=== PATIENT | male | born 1960 | race Caucasian/White ===

== ENCOUNTER 2019-06-08 10:27 | Outpatient (CLI) | payer BC, SELFPAY ==
--- NOTE | ~2019-06-08 | MR_ITS ---
. EXAMINATION: MR brain/brain stem wo/w con DATE: 06/08/2019 13:23 INDICATION: Movement disorder. TECHNIQUE: Magnetic resonance imaging (MRI) of the brain and brainstem was performed without and with 20 mL MultiHance intravenous contrast. Sequences included sagittal and axial T1-weighted FSE, axial diffusion-weighted FS EPI, axial T2*-weighted GRE, axial T2-weighted FLAIR Propeller, axial T2-weight ed Propeller, small ashvp-cj-nvui coronal FIESTA, small bpthe-xz-cedc coronal T1-weighted FSE, and sm all ofsfn-np-cjdf axial T1-weighted SPGR. Postcontrast sequences included axial T1-weighted FSE, smal l eprlg-zv-blzz coronal T1-weighted FSE, and small hnktr-jh-okbb axial T1-weighted SPGR. Apparent dif fusion coefficient (ADC) maps were created. COMPARISON: Brain MRI 10/10/2018 FINDINGS: There are scattered areas of nonspecific increased T2-weighted signal intensity in the cere bral white matter, which is within normal limits for the patient's age. There is an 8 x 5 x 5 mm mass to the left of the josé at the left trigeminal nerve root entry zone that demonstrates increased T1- weighted signal intensity. There is no intracranial hemorrhage or acute ischemic infarct. The ventric les are normal in size. The paranasal sinuses are clear. The orbits are normal. The mastoid air cells are normal. IMPRESSION: 1. 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 Reviewed, dictated and finalized at location A. 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
--- NOTE | 2019-06-08 11:20 | NEURO_ITS ---
TEST: ELECTROENCEPHALOGRAM DIAGNOSIS: MOVEMENT DISORDER PATIENT NUMBER: [id number] EEG NUMBER: [id number] RECORDING DATE: 06/08/19 CLINICAL HISTORY: Patient reports he has tremors in his hands. CONDITION OF RECORDING: Awake, drowsy and sleep EEG DESCRIPTION: Basic resting occipital frequency consists of minimal amount of poorly organized low voltage 9-11hz alpha mixed with minimal amount of low voltage 15-18hz beta. During drowsiness low voltage beta activity is seen diffusely mixed with waxing and waning posterior alpha rhythms. Bilateral symmetrical sleep activity is seen during sleep. Photic stimulation produced poor drive. Nonparoxysmal. Nonfocal. Nonlateralizing. IMPRESSION: No significant abnormalities noted. Patient had an EEG done on 10/10/18 which was also without any abnormalities. [facility]
[2019-06-08 12:39] LABS: Blood Urea Nitrogen 16 mg/dL (8-26); Estimated Glomerular Filt Rate > 60
== END 2019-06-08 10:28 | disposition home or self-care (01) ==
LOC: ANHNEURO 10:30
PROVIDERS: Visit Provider Psychiatry & Neurology Neurology
DX: G25.9 Extrapyramidal and movement disorder, unspecified (principal)
CPT/HCPCS: 70553; 95816; A9577

== ENCOUNTER 2020-10-31 16:08 | Inpatient (IN) | payer BC, SELFPAY ==
[2020-10-31] VITALS (19 sets, daily range): BP systolic 97–140; BP diastolic 45–65; PULSE 64–69; RESP 12–23; TEMP 36.6–36.7; O2SAT 91–100; BMI 33.8
--- NOTE | ~2020-10-31 | CT_ITS ---
EXAMINATION: CTA chest PE protocol EXAM DATE: 10/31/2020 17:54 INDICATION: Shortness of breath. TECHNIQUE: Spiral CTA of the chest (pulmonary arteries) was performed with 100 cc Omnipaque 350 intr avenous contrast injection. Images were acquired during the pulmonary arterial phase. Coronal maxi mum intensity projection 3D-reconstructions were created by the technologist on dedicated workstation . Axial, coronal and sagittal reformatted images were reviewed. The dose-length product (DLP) for t his examination was 705.67 mGy-cm. The exposure was tailored according to patient size (auto mA exp osure control), and iterative reconstruction (ASIR) was used as additional dose reduction technique. There is no prior study for comparison. FINDINGS: Pulmonary arteries are well opacified and without intraluminal filling defects. No thora cic aortic dissection. There is moderate-sized right pleural effusion probably nonloculated, and a tr laureano left pleural effusion. There is segmental right basilar compressive atelectasis. No evidence of p neumonia. Tracheobronchial tree is patent. There is no mediastinal, hilar or axillary lymphadenopat hy. There is no pneumothorax. Mild cardiomegaly. There are sternotomy wires, and cardiac/coronar y surgical changes. Correlate with prior history. Moderate splenomegaly, spleen measuring up 17.7 cm in AP dimension. There is thoracic spondylosis without osteoblastic or osteolytic lesions identifie d. IMPRESSION: 1. No pulmonary emboli. 2. Cardiomegaly, moderate right pleural effusion with adjacent segmental atelectasis. 3. Moderate splenomegaly. Reviewed, dictated and finalized at location A. IMPRESSION: 1. No pulmonary emboli. 2. Cardiomegaly, moderate right pleural effusion with adjacent segmental atele ctasis. 3. Moderate splenomegaly.
--- NOTE | ~2020-10-31 | US_ITS ---
EXAMINATION: US thoracentesis DATE: 11/01/2020 15:12 INDICATION: pleural effusion TECHNIQUE: The procedure and its risks, benefits, and alternatives were discussed with the patient. P otential risks discussed included bleeding, infection, and pneumothorax. The patient understood the r isks and agreed to proceed. The skin was prepped and draped in sterile fashion. 1% lidocaine was used for local anesthesia. Under ultrasound guidance, a 5 Fr catheter with trochar was advanced into the right pleural effusion. Fluid was aspirated. The catheter was removed, and a dressing was applied. Th ere were no immediate complications. FINDINGS: Ultrasound images demonstrate a right pleural effusion and the catheter within the fluid. IMPRESSION: 1. Successful ultrasound-guided thoracentesis yielding 1000 mL of clear, yellow fluid. Reviewed, dictated and finalized at location A. IMPRESSION: 1. Successful ultrasound-guided thoracentesis yielding 1000 mL of clear, yello w fluid.
--- NOTE | ~2020-10-31 | XR_ITS ---
EXAMINATION: XR chest 2V EXAM DATE: 10/31/2020 16:55 INDICATION: Shortness of breath. History CHF. TECHNIQUE: Frontal and lateral projections of the chest obtained and reviewed. There is no prior paddy dy for comparison. FINDINGS: Sternotomy wires are present without findings to suggest sternal dehiscence. There is card iomegaly. Small to moderate right, small pleural effusions. Possible mild pulmonary edema. No conflue nt consolidation or pneumothorax. Patient has diffuse idiopathic skeletal hyperostosis (DISH). IMPRESSION: 1. Cardiomegaly, small to moderate right, small pleural effusions. 2. Possible mild pulmonary edema. Reviewed, dictated and finalized at location A.
--- NOTE | ~2020-10-31 | XR_ITS ---
EXAMINATION: [id number] DATE: 11/01/2020 15:21 INDICATION: Right pleural effusion status post thoracentesis. TECHNIQUE: A single frontal view of the chest was obtained on 2 radiographs. COMPARISON: Chest 2 views 10/31/2020, chest CT 10/31/2020 FINDINGS: There are small bilateral pleural effusions. No pneumonia or pneumothorax. Cardiomegaly is noted. Median sternotomy wires and mediastinal surgical clips are seen, likely from prior coronary ar bernadine bypass grafting. IMPRESSION: 1. Small pleural effusions with improvement on the right status post thoracentesis. 2. Cardiomegaly. Reviewed, dictated and finalized at location A. IMPRESSION: 1. Small pleural effusions with improvement on the right status post thoracente sis. 2. Cardiomegaly.
--- NOTE | ~2020-10-31 | XR_ITS ---
EXAMINATION: XR chest 1V portable INDICATION: Pleural effusion TECHNIQUE: Portable AP chest at 0759 hours COMPARISON: 11/01/2020 FINDINGS: There are small pleural effusions. Minimal airspace opacities are present in the lung bases . Cardiomegaly is noted. There is no pneumothorax. Median sternotomy wires and mediastinal surgical c lips are seen, likely from prior coronary artery bypass grafting. IMPRESSION: 1. Small pleural effusions. 2. Cardiomegaly. 3. Minimal bibasilar airspace opacities, likely atelectasis. Reviewed, dictated and finalized at location D.
--- NOTE | 2020-10-31 16:28 | ECG_ITS ---
Measurements Intervals [place] Rate: 68 P: 75 NH: 136 QRS: -14 QRSD: 105 T: 189 QT: 465 QTc: 496 Interpretive Statements SINUS RHYTHM INCOMPLETE RIGHT BUNDLE BRANCH BLOCK LOW QRS VOLTAGE IN PRECORDIAL LEADS INFERIOR INFARCT, AGE INDETERMINATE ST-T WAVE ABNORMALITY IN ANTEROLAT/HIGH LAT LEADS- CONSIDER ISCHEMIA BASELINE ARTIFACT- II, III, AVR, AVF, V1-V6 ABNORMAL ECG Electronically Signed On 10-31-2020 16:36:02 CDT by Tyrese Reno D.O.
[2020-10-31 16:46] LABS: Basophils Absolute Auto 0.1 K/mm3 (0.0-0.1); Basophils Percent Auto 0.7 % (0.2-1.2); Eosinophils Absolute Auto 0.4 K/mm3 (0-0.3); Eosinophils Percent Auto 3.9 % (0-4.4); Hematocrit 25.9 % (42.0-52.0); Immature Granulocyte Absolute 0.05 K/mm3 (0.00-0.031); Immature Granulocyte Percent A 0.6 % (0-0.5); Lymphocytes Percent Auto 12.2 % (18.3-44.2); Mean Corpuscular HGB Conc 30.9 g/dl (32-36); Mean Corpuscular Hemoglobin 24.9 pg (26-34); Mean Corpuscular Volume 80.7 fl (80-100); Mean Platelet Volume 9.1 fl (7.4-10.4); Monocytes Absolute Auto 0.9 K/mm3 (0.1-0.6); Monocytes Percent Auto 9.5 % (2.6-8.5); Neutrophils Absolute Auto 6.6 K/mm3 (1.3-6.7); Neutrophils Percent Auto 73.1 % (45.5-73.1); Platelet Count Result 241 k/mm3 (150-375); Red Blood Count 3.21 M/mm3 (4.6-6.20); Red Cell Distribution Width 21.8 % (11.5-14.5)
[2020-10-31 17:00] LABS: Anion Gap 6 mmol/L (8-16); Blood Urea Nitrogen 7 mg/dL (9-20); Calcium 7.8 mg/dL (8.4-10.2); Carbon Dioxide 39 mmol/L (22-30); Chloride 88 mmol/L (98-107); Estimated CRCL calculation 124 ml/min; Estimated Glomerular Filt Rate > 60; Glucose 104 mg/dL (75-110); Potassium 2.4 mmol/L (3.4-5.0); Sodium 133 mmol/L (137-145)
--- NOTE | 2020-10-31 17:05 | ED.GENADULT ---
HPI - General Adult General Chief complaint: Shortness of Breath/Dyspnea Stated complaint: Pulse ox 82% at [facility] , congestion , may need blood Time Seen by Provider: 10/31/20 16:32 Source: patient History of Present Illness HPI narrative: Patient is a 60 y/o male complaining of moderate weakness and SOB for 2 months ago. He states that exertion makes his symptoms worse. He has some cough, but fever or chest pain. He was seen in Dr. De La Vega's office today and sent here because his pulse was 84% on RA. Related Data Allergies Allergy/AdvReac Type Severity Reaction Status Date / Time penicillin G Allergy Unknown Verified 10/10/20 09:01 Review of Systems Constitutional: Constitutional: Denies chills, Denies fever(s), Denies headache(s) and Reports weakness Eyes: Eyes: Denies blurry vision ENT: Denies headache(s) and Denies neck pain Cardiovascular: Cardiovascular: Denies chest pain and Reports dyspnea Respiratory: Respiratory: Reports cough and Reports dyspnea Gastrointestinal: Gastrointestinal: Denies abdominal pain, Denies diarrhea, Denies nausea and Denies vomiting Genitourinary: Genitourinary: Denies hematuria and Denies dysuria Musculoskeletal: Musculoskeletal: Denies back pain and Denies neck pain Neurologic: Denies headache(s) and Denies weakness Exam Const: General: no acute distress and well developed Orientation/consciousness: oriented to person, oriented to place and confusion HENMT: Head: normocephalic Ears: external ears normal General nose exam: Normal external nose present Eyes: General: appearance normal, both eyes and all related structures Conjunctivae: conjunctivae normal Neck: Neck: normal visual inspection and full ROM Chest: Chest palpation & inspection: normal inspection of the chest and no tenderness Resp: Effort & Inspection: normal respiratory effort Auscultation: clear to auscultation bilaterally Cardio: Rate: regular rate Rhythm: regular rhythm GI: GI Palp: No abdominal tenderness and Yes Soft to palpation Skin: General skin exam: normal color and turgor normal Neuro: General: oriented to person, oriented to place and confusion Cognition (Neuro): normal cognition Extrem: General: normal to inspection, full ROM and no pedal edema Psych: Appearance: grossly normal Mental Status: mental status grossly normal Affect: normal affect Course Consultations Consultation #1: Discussed with JOSE Green, who agrees to admit. Date: 10/31/20 Time: 18:45 Vital Signs Vital signs: Vital Signs Temperature 36.7 C 10/31/20 16:21 Pulse Rate 69 10/31/20 16:21 Respiratory Rate 20 10/31/20 16:21 Blood Pressure 103/50 L 10/31/20 16:21 Pulse Oximetry 91 10/31/20 16:21 Temperature 36.7 C 10/31/20 16:21 Pulse Rate 66 10/31/20 19:20 Respiratory Rate 16 10/31/20 19:20 Blood Pressure 103/53 L 10/31/20 19:20 Pulse Oximetry 99 10/31/20 19:20 Medical Decision Making Vital Signs Vital Signs: Vital Signs Temperature 36.7 C 10/31/20 16:21 Pulse Rate 69 10/31/20 16:21 Respiratory Rate 20 10/31/20 16:21 Blood Pressure 103/50 L 10/31/20 16:21 Pulse Oximetry 91 10/31/20 16:21 Temperature 36.7 C 10/31/20 16:21 Pulse Rate 66 10/31/20 19:20 Respiratory Rate 16 10/31/20 19:20 Blood Pressure 103/53 L 10/31/20 19:20 Pulse Oximetry 99 10/31/20 19:20 Lab Data Result diagrams: 10/31/20 16:40 10/31/20 16:40 Labs: Lab Results 10/31/20 10/31/20 10/31/20 Range/Units 16:40 16:40 17:09 WBC 9.0 (4.5-10.0) K/mm3 RBC 3.21 L (4.6-6.20) M/mm3 Hgb 8.0 L (14.0-18.0) g/dL Hct 25.9 L (42.0-52.0) % MCV 80.7 (80-100) fl MCH 24.9 L (26-34) pg MCHC 30.9 L (32-36) g/dl RDW 21.8 H (11.5-14.5) % Plt Count 241 (150-375) k/mm3 MPV 9.1 (7.4-10.4) fl Immature Gran % (Auto) 0.6 H (0-0.5) % Neut % (Auto) 73.1 (45.5-73.1) % Lymph % (Auto) 12.2 L (18.3-44.2)
[2020-10-31] MEDS: POTASSIUM CHLORIDE 20 MEQ TABLET 40 MEQ PO (17:19)
[2020-10-31 17:25] LABS: INR 1.3; Prothrombin Time 16.5 Seconds (11.1-14.7)
[2020-10-31 17:26] LABS: Partial Thromboplastin Time 39.5 SECONDS (22.3-36.8)
[2020-10-31 17:28] LABS: Alanine Aminotransferase 10 U/L (4-50); Alkaline Phosphatase 106 U/L (38-126); Aspartate Amino Transferase 37 U/L (17-59); Bilirubin,Total 2.4 mg/dL (0.2-1.3); D Dimer 1.68 ug/mL (<0.48)
[2020-10-31 17:30] LABS: Base Excess ABG 15.2 mEq/l (+/-2.0); Fractional Inspired Oxygen 24 %; HCO3 ABG 39.2 mEq/l (22.0-26.0); Oxygen Content ABG 11.3 %vol (16.0-22.0); Oxygen Saturation ABG 92.8 % (95.0-100.0); Oxyhemoglobin 89.8 % THb (90.0-100.0); PCO2 ABG 46.4 mmHg (35.0-45.0); PO2 ABG 57.9 mmHg (80.0-100.0); PO2 FiO2 Ratio Arterial Blood 2.41 %; Total Hemoglobin 8.9 g/dL (12.0-18.0)
[2020-10-31 17:31] LABS: Device NASAL CANNULA; Modified Allen's Test Pass; Site Drawn RIGHT RADIAL; pH ABG 7.545 (7.350-7.450)
--- NOTE | 2020-10-31 17:39 | PC.NURSE ---
Patient to CT.
[2020-10-31 17:41] LABS: NT Pro B Type Natriuretic Pept 1250 pg/mL (5-100); Troponin I < 0.012 ng/mL (0.000-0.034)
[2020-10-31 20:19] LABS: Troponin I < 0.012 ng/mL (0.000-0.034)
--- NOTE | 2020-10-31 20:36 | ADMGEN ---
This patient, Faisal Suazo, was admitted to [facility] Surg Room 315-01. Patient/family oriented to hospital policies and general routines including ID bracelet, bed and alarms, visiting hours, pain management, procedures, bathroom and other care routines, personal items, smoking policy, room service/diet, and visiting hours. Information on how to activate the Rapid Response Team has been discussed. Patient/Family are encouraged to report perceived risks to care and to ask questions if they do not understand what they are told or what they should do.
[2020-10-31 23:41] LABS: Troponin I < 0.012 ng/mL (0.000-0.034)
[2020-11-01] VITALS (12 sets, daily range): BP systolic 95–109; BP diastolic 39–59; PULSE 64–78; RESP 17–22; TEMP 36.6–36.8; O2SAT 90–99
--- NOTE | 2020-11-01 01:39 | PM.IMHP ---
H&P: HPI History of Present Illness Date/Time: 11/01/20 01:39 Chief Complaint: shortness of breath Narrative: This is a 60-year-old male WITH PAST MEDICAL HISTORY SIGNIFICANT FOR HYPERTENSION ,DYSLIPIDEMIA, MOVEMENT DISORDER, CORONARY ARTERY DISEASE. PATIENT COMES IN DUE TO SHORTNESS OF BREATH HE IS A POOR HISTORY DOES NOT GIVE MUCH HISTORY ON HIS ON WHICH I HAVE OBTAINED MAINLY ON REVIEW OF MEDICAL RECORDS AND EMERGENCY ROOM RECORDS. HE WAS AT HIS PRIMARY CARE PHYSICIAN'S OFFICE WHERE HE WENT DUE TO SHORTNESS OF BREATH AND HE WAS FOUND TO HAVE AN OXYGEN SATURATION IN THE LOW 80S AND WAS SENT OVER TO EMERGENCY ROOM. PRELIMINARY WORKUP IS SIGNIFICANT FOR A CT OF THE CHEST WITH MODERATE RIGHT-SIDED PLEURAL EFFUSION, CHEMISTRY WAS SIGNIFICANT FOR POTASSIUM OF 2.4 A BNP OF 1250 ABG WITH PO2 57. AT THE TIME OF MY VISIT PATIENT DENIED ANY DISCOMFORT. Review of Systems Review of Systems: Narrative: SHORTNESS OF BREATH SENT OVER BY PRIMARY CARE PHYSICIAN DUE TO LOW PULSE OX Constitutional: Constitutional: Denies chills, Reports fatigue, Denies fever(s), Denies malaise and Denies weakness Eyes: Eyes: Denies change in vision ENT: Denies nasal congestion, Denies nasal discharge and Denies nasal obstruction Cardiovascular: Cardiovascular: Denies irregular heart rhythm, Reports leg edema, Denies lightheadedness, Denies radiating jaw, neck or arm pain, Denies palpitations and Reports dyspnea Respiratory: Respiratory: Denies cough and Reports dyspnea Gastrointestinal: Gastrointestinal: Denies diarrhea, Denies nausea and Denies vomiting Genitourinary: Genitourinary: Reports no additional male genitourinary complaints Musculoskeletal: Musculoskeletal: Reports no additional musculoskeletal complaints Integumentary/Breasts: Skin/Breast: Reports system reviewed and no additional complaints, except as docu Neurologic: Reports system reviewed and no additional complaints, except as documented Psychiatric: Psychiatric: Reports no additional psychiatric complaints Endocrine: Endocrine: Reports no additional endocrine complaints Hematologic/Lymphatic: Hematologic/Lymphatic: Reports no additional hematologic/lymphatic complaints Allergic/Immunologic: Allergic/Immunologic: Reports no additional allergic/immunologic complaints [facility] Family History Family History (Updated 10/31/20 @ 23:10 by Aicha Mendoza RN) Father Congestive heart failure Social History Social History Smoking packs per day: 0.5 Smoking cigarettes per day: 10.0 Smoking status: Current every day smoker Tobacco type: cigarettes Alcohol intake: never Substance use: never Gender identity (if verbalized by the patient): Male Spiritual care concerns: No Meds Home Medications and Allergies Home Medications Medication Instructions Recorded Confirmed Type albuterol sulfate [ProAir HFA] 2 inh INHALATION BID 10/31/20 10/31/20 History alprazolam [Xanax] 1 mg PO BID 10/31/20 10/31/20 History atorvastatin [Lipitor] 1 mg PO DAILY 10/31/20 10/31/20 History bumetanide 1 mg PO BID 10/31/20 10/31/20 History clopidogrel [Plavix] 75 mg PO DAILY 10/31/20 10/31/20 History furosemide [Lasix] 40 mg PO BID 10/31/20 10/31/20 History metoprolol tartrate 50 mg PO DAILY 10/31/20 10/31/20 History omeprazole [Prilosec] 1 mg PO DAILY 10/31/20 10/31/20 History primidone [Mysoline] 50 mg PO QHS 10/31/20 10/31/20 History sertraline [Zoloft] 100 mg PO DAILY 10/31/20 10/31/20 History Allergies Allergy/AdvReac Type Severity Reaction Status Date / Time penicillin G Allergy Unknown Verified 10/10/20 09:01 Vital Signs Vital Signs - 24 hr 10/31/20 16:21 10/31/20 16:40 10/31/20 17:00 Temperature 98.0 F Pulse Rate 69 69 66 Respiratory Rate 20 19 Blood Pressure 103/50 L Pulse Oximetry 91 99 100 10/31/20 17:01 10/31/20 17:25 10/31/20 17:37 Temperature Pulse Rate 67 66 67 Respiratory Rate 23 H 19 12 Bloo
[2020-11-01 06:33] LABS: Anion Gap 7 mmol/L (8-16); Blood Urea Nitrogen 6 mg/dL (9-20); Carbon Dioxide 36 mmol/L (22-30); Chloride 91 mmol/L (98-107); Estimated CRCL calculation 125 ml/min; Estimated Glomerular Filt Rate > 60; Glucose 106 mg/dL (75-110); Potassium 2.9 mmol/L (3.4-5.0); Sodium 134 mmol/L (137-145)
[2020-11-01] MEDS: ATORVASTATIN 20 MG TABLET PO (08:46)
[2020-11-01] MEDS: METOPROLOL SUCCINATE EXT REL 50 MG TABCR PO (08:46)
[2020-11-01] MEDS: SERTRALINE HCL 50 MG TABLET 100 MG PO (08:46)
[2020-11-01] MEDS: PANTOPRAZOLE 40 MG TABLET PO (08:49)
[2020-11-01] MEDS: ALBUTEROL SULFATE (*SP) AEROSOL 1 PUFF 2 PUFF INHALATION ×2 (08:52→21:28)
[2020-11-01] MEDS: ALPRAZolam (*CRX) 0.5 MG TABLET 1 MG PO ×2 (08:53→17:09)
--- NOTE | 2020-11-01 14:19 | PM.IMPN ---
Progress Note: A&P Assessment and Plan (1) Acute respiratory failure with hypoxia: Code(s): J96.01 - Acute respiratory failure with hypoxia Status: Acute Assessment and Plan: CURRENTLY ON SUPPLEMENTAL OXYGEN CHEST X-RAY SIGNIFICANT FOR MODERATE SIDE RIGHT PLEURAL EFFUSION CT ANGIO NEGATIVE FOR PULMONARY EMBOLISM SUPPORTIVE CARE INCENTIVE SPIROMETRY ALBUTEROL BREATHING TREATMENT History of congestive heart failure in the past with elevated BNP noted. (2) Pleural effusion: Code(s): J90 - Pleural effusion, not elsewhere classified Status: Acute Assessment and Plan: CT-GUIDED RIGHT-SIDED THORACENTESIS This afternoon PLEURAL FLUID FOR STUDIES (3) Coronary artery disease involving autologous artery coronary bypass graft: Code(s): I25.810 - Atherosclerosis of coronary artery bypass graft(s) without angina pectoris Status: Acute Assessment and Plan: CONTINUE METOPROLOL CONTINUE PLAVIX CONTINUE STATIN (4) CHF (congestive heart failure): Qualifiers: Heart failure chronicity: unspecified Heart failure type: unspecified Qualified Code(s): I50.9 - Heart failure, unspecified Code(s): I50.9 - Heart failure, unspecified Status: Acute Assessment and Plan: PATIENT IS BUMETANIDE AND LASIX HE HAS CONTRACTION ALKALOSIS WILL HOLD BUMETANIDE AND FUROSEMIDE Will get an echocardiogram. Cardiology consultation. With new pleural effusion maybe still has volume overload (5) Hypokalemia: Code(s): E87.6 - Hypokalemia Status: Acute Assessment and Plan: LIKELY SECONDARY TO OVER DIURESIS REPLACE NEEDED (6) Metabolic alkalosis: Code(s): E87.3 - Alkalosis Status: Acute Assessment and Plan: LIKELY SECONDARY TO OVER DIURESIS (7) Anemia: Code(s): D64.9 - Anemia, unspecified Status: Acute Assessment and Plan: hemoglobin noted to be 8. No prior levels available to review. Contacted primary care's office today for recent labs will await to review those lab results He reports he had EGD and colonoscopy in the past on evaluation of his anemia which was negative per patient (8) DVT prophylaxis: Code(s): Z29.9 - Encounter for prophylactic measures, unspecified Status: Acute Assessment and Plan: SCDs under to evaluate the reason for anemia Subjective Date/time seen: 11/01/20 14:19 Interval history: wants to go home. He is scheduled to get a thoracentesis morning. He feels tired. He denies any shortness of breath currently. No chest pain. No fevers chills. He was recently in another hospital at [place] reports history of anemia needing transfusion. Contacted primary care's office to get recent labs. Review of Systems Review of Systems: Narrative: - CONSTITUTIONAL: Denies weight loss, fever and chills. - HEENT: Denies changes in vision and hearing - RESPIRATORY: Reports SOB and deniescough. - CV: Denies palpitations and CP. - GI: Denies abdominal pain, nausea, vomiting and diarrhea. - : Denies dysuria and urinary frequency. - MSK: Denies myalgia and joint pain. - SKIN: Denies rash and pruritus. - NEUROLOGICAL: Denies headache and syncope. - PSYCHIATRIC: Denies recent changes in mood. Denies anxiety and depression. All systems reviewed & are unremarkable except as noted in HPI and below Constitutional: Constitutional: Reports fatigue and Reports weakness Neurologic: Reports weakness Endocrine: Endocrine: Reports fatigue Exam Narrative: Exam Narrative: GENERAL: The patient is well developed, tired looking not in acute distress HEENT: Nonicteric sclerae, PERRLA, EOMI. Oropharynx clear. Moist mucous membranes. Conjunctivae appear well perfused. CHEST: Chest wall is nontender. HEART: Regular rate and rhythm without murmur, rubs, or gallops LUNGS: decreased breath sound bilaterally no added sounds heard. no respiratory distress AB
--- NOTE | 2020-11-01 14:38 | PM.CNCAR ---
Assessment and Plan Assessment and plan (1) CHF (congestive heart failure): Qualifiers: Heart failure chronicity: unspecified Heart failure type: unspecified Qualified Code(s): I50.9 - Heart failure, unspecified Code(s): I50.9 - Heart failure, unspecified Status: Acute Assessment and Plan: likely is due to systolic dysfunction due to ischemic cardiomyopathy, agree with diuresis, follow up input and outputs closely, replace potassium and follow potassium level closely. Will get echocardiogram to evaluate current status of left ventricular systolic function look for any other structural heart disease (2) Pleural effusion: Code(s): J90 - Pleural effusion, not elsewhere classified Status: Acute Assessment and Plan: likely is due to congestive heart failure, agree with diuresis and follow up input and outputs (3) Coronary artery disease involving autologous artery coronary bypass graft: Code(s): I25.810 - Atherosclerosis of coronary artery bypass graft(s) without angina pectoris Status: Acute (4) Hypokalemia: Code(s): E87.6 - Hypokalemia Status: Acute (5) Acute respiratory failure with hypoxia: Code(s): J96.01 - Acute respiratory failure with hypoxia Status: Acute Additional Plan Thank you for allowing me to participate in this patient's care, I will be following up with you. Please do not hesitate to call me for any other inquiry History of Present Illness History of Present Illness Consult date/time: 11/01/20 14:38 chief complaint is weakness shortness of breath. 60 years old gentleman with history of hypertension dyslipidemia stir of coronary artery disease status post coronary bypass surgery came to the hospital because of worsening shortness breath and significant leg swelling with [id number] orthopnea. 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 Came to the hospital this time here with weakness of and shortness of breath noted to have significant leg swelling and [id number] orthopnea denies any chest pain. Has some cough but no sputum production and no fever. No recent chest pain no palpitation no dizziness Reason For Visit: hypokalemia Review of Systems Review of Systems: ROS unobtainable: Yes unobtainable due to mental status Constitutional: Constitutional: Reports as per HPI Cardiovascular: Cardiovascular: Reports as per HPI Respiratory: Respiratory: Reports as per HPI [facility] Family History Family History (Updated 10/31/20 @ 23:10 by Aicha Mendoza RN) Father Congestive heart failure Social History Social History Smoking packs per day: 0.5 Smoking cigarettes per day: 10.0 Smoking status: Current every day smoker Tobacco type: cigarettes Alcohol intake: never Substance use: never Gender identity (if verbalized by the patient): Male Spiritual care concerns: No Meds Home Medications and Allergies Home Medications Medication Instructions Recorded Confirmed Type albuterol sulfate [ProAir HFA] 2 inh INHALATION BID 10/31/20 10/31/20 History alprazolam [Xanax] 1 mg PO BID 10/31/20 10/31/20 History atorvastatin [Lipitor] 1 mg PO DAILY 10/31/20 10/31/20 History bumetanide 1 mg PO BID 10/31/20 10/31/20 History clopidogrel [Plavix] 75 mg PO DAILY 10/31/20 10/31/20 History furosemide [Lasix] 40 mg PO BID 10/31/20 10/31/20 History metoprolol tartrate 50 mg PO DAILY 10/31/20 10/31/20 History omeprazole [Prilosec] 1 mg PO DAILY 10/31/20 10/31/20 History primidone [Mysoline] 50 mg PO QHS 10/31/20 10/31/20 History sertraline [Zoloft] 100 mg PO DAILY 10/31/20 10/31/20 History Allergies Allergy/AdvReac Type Severity Reaction Status Date / Time penicillin G
[2020-11-01 16:25] LABS: Appearance Pleural Fluid Clear (Clear); Color Pleural Fluid Yellow (Colorless); Pleural fluid source Pleural fluid
[2020-11-01 16:28] LABS: Lymphocytes Pleural Fluid 15 %; Macrophages Pleural Fluid 6 %; Mesothelial Cells Pleural Flui 1 %; Monocytes Pleural Fluid 2 %; Neutrophils Pleural Fluid 71 % (0-25)
[2020-11-01 16:29] LABS: Other Cells Pleural Fluid 5 %
[2020-11-01 16:43] LABS: Nucleated Cell Pleural Fluid 1117 /uL (0-1000); RBC Pleural Fluid 0 /uL (0-0)
[2020-11-01] MEDS: POTASSIUM CHLORIDE 20 MEQ PACKET (FOR LIQUID) PO (17:06)
[2020-11-01 17:12] LABS: SARS-CoV-2 RNA PCR Negative
[2020-11-01] MEDS: ALBUTEROL SULFATE (*SP) INHALER 2 PUFF INHALATION (21:29)
[2020-11-02] VITALS (10 sets, daily range): BP systolic 92–110; BP diastolic 46–56; PULSE 74–80; RESP 14–18; TEMP 36.3–36.9; O2SAT 92–96
--- NOTE | 2020-11-02 | ECHO_ITS ---
Patient Info Name: Faisal Suazo Age: 60 years : 1960 Gender: Male Ht: 71 in Wt: 242 lbs BSA: 2.38 m2 HR: 78 bpm BP: 109 / 55 mmHg Technical Quality: Good Exam Date: 11/02/2020 1:37 PM Exam Location: [facility] Pulmonary Exam Room: [facility] Patient Status: Inpatient Admit Date: 10/31/2020 Staff Ordering Physician: Ari Altamirano MD Watch Parts Grinder: May Cantu RDCS Attending Provider: Frankie Calzada MD Exam Type: CA echo doppler color flow Study Info Indications - CHF CAD S/P CABG Complete two-dimensional, color flow and Doppler transthoracic echocardiogram is performed. Summary 1. Complete two-dimensional, color flow and Doppler transthoracic echocardiogram is performed. 2. Left ventricular chamber dimension is borderline dilated. 3. Left ventricular systolic function is normal, estimated at 60-65%. 4. Right ventricle is mildly dilated with mild RV systolic dysfunction. 5. Left atrial chamber dimension is mildly to moderately enlarged. 6. Aortic valve is mildly calcified. 7. There is no aortic valve stenosis. 8. There is mild mitral valve regurgitation. 9. The tricuspid valve is not well visualized. 10. There is mild tricuspid valve regurgitation. 11. Mild pulmonary hypertension, estimated pulmonary arterial systolic pressure is 45-50mmHg. 12. Dilated inferior vena cava with <50% collapse upon inspiration. 13. There is no pericardial effusion. Left Ventricle Left ventricular chamber dimension is borderline dilated. Left ventricular systolic function is normal, estimated at 60-65%. There is no increased left ventricular wall thickness. Paradoxical septal wall motion consistent with h/o CABG. The left ventricular diastolic function is normal. Right Ventricle Right ventricle is mildly dilated with mild RV systolic dysfunction. Left Atria Left atrial chamber dimension is mildly to moderately enlarged. Right Atria Right atrial chamber dimension is normal. Aortic Valve The aortic valve is trileaflet. Aortic valve is mildly calcified. There is no aortic valve stenosis. There is no aortic valve regurgitation. Pulmonic Valve The pulmonic valve is normal. There is no pulmonic valve stenosis. There is no pulmonic regurgitation. Mitral Valve The mitral valve has normal leaflets. There is no mitral valve stenosis. There is mild mitral valve regurgitation. Tricuspid Valve The tricuspid valve is not well visualized. There is mild tricuspid valve regurgitation. Mild pulmonary hypertension, estimated pulmonary arterial systolic pressure is 45-50mmHg. Pericardium/Pleural The pericardium appears normal. There is no pericardial effusion. Inferior Vena Cava Dilated inferior vena cava with <50% collapse upon inspiration. Aorta The aortic root size at the sinus of Valsalva is normal. The prox ascending aorta size is normal. Left Ventricular Outflow Tract Name Value Normal LVOT 2D LVOT Diameter 2.0 cm LVOT Doppler LVOT Peak Gradient 8 mmHg LVOT Mean Gradient 5 mmHg LVOT VTI 28 cm
[2020-11-02 06:32] LABS: Basophils Absolute Auto 0.1 K/mm3 (0.0-0.1); Basophils Percent Auto 0.6 % (0.2-1.2); Eosinophils Absolute Auto 0.3 K/mm3 (0-0.3); Eosinophils Percent Auto 3.2 % (0-4.4); Hematocrit 24.5 % (42.0-52.0); Hemoglobin 7.5 g/dL (14.0-18.0); Immature Granulocyte Absolute 0.03 K/mm3 (0.00-0.031); Immature Granulocyte Percent A 0.4 % (0-0.5); Lymphocytes Absolute Auto 1.18 K/mm3 (0.9-3.2); Lymphocytes Percent Auto 14.5 % (18.3-44.2); Mean Corpuscular HGB Conc 30.6 g/dl (32-36); Mean Corpuscular Hemoglobin 24.8 pg (26-34); Mean Corpuscular Volume 81.1 fl (80-100); Monocytes Absolute Auto 0.7 K/mm3 (0.1-0.6); Monocytes Percent Auto 8.3 % (2.6-8.5); Neutrophils Absolute Auto 5.9 K/mm3 (1.3-6.7); Platelet Count Result 210 k/mm3 (150-375); Red Blood Count 3.02 M/mm3 (4.6-6.20); Red Cell Distribution Width 22.4 % (11.5-14.5); White Blood Count 8.1 K/mm3 (4.5-10.0)
[2020-11-02 06:51] LABS: Alanine Aminotransferase 9 U/L (4-50); Alkaline Phosphatase 100 U/L (38-126); Anion Gap 5 mmol/L (8-16); Aspartate Amino Transferase 35 U/L (17-59); Blood Urea Nitrogen 8 mg/dL (9-20); Calcium 8.3 mg/dL (8.4-10.2); Carbon Dioxide 36 mmol/L (22-30); Chloride 93 mmol/L (98-107); Estimated CRCL calculation 125 ml/min; Estimated Glomerular Filt Rate > 60; Glucose 87 mg/dL (75-110); Magnesium 1.7 mg/dL (1.6-2.3); Potassium 2.9 mmol/L (3.4-5.0); Sodium 134 mmol/L (137-145)
[2020-11-02 06:55] LABS: Anisocytosis 1+ (NORMAL); Microcytosis 1+ (NORMAL); Ovalocytes 1+ (NORMAL); Platelet Estimate Adequate (Adequate)
[2020-11-02] MEDS: ALBUTEROL SULFATE (*SP) INHALER 2 PUFF INHALATION ×2 (09:35→20:16)
[2020-11-02] MEDS: ALPRAZolam (*CRX) 0.5 MG TABLET 1 MG PO ×2 (09:36→16:53)
[2020-11-02] MEDS: SERTRALINE HCL 50 MG TABLET 100 MG PO (09:37)
[2020-11-02] MEDS: PANTOPRAZOLE 40 MG TABLET PO (09:37)
[2020-11-02] MEDS: POTASSIUM CHLORIDE 20 MEQ PACKET (FOR LIQUID) PO ×2 (09:37→16:55)
[2020-11-02] MEDS: FUROSEMIDE INJ 40 MG/4 ML VIAL IV PUSH ×2 (09:37→16:55)
[2020-11-02] MEDS: ATORVASTATIN 20 MG TABLET PO (09:37)
[2020-11-02] MEDS: CLOPIDOGREL BISULFATE 75 MG TABLET PO (09:37)
[2020-11-02] MEDS: METOPROLOL SUCCINATE EXT REL 50 MG TABCR PO (09:39)
--- NOTE | 2020-11-02 10:34 | PM.PNCARD ---
Progress Note: A&P Assessment and Plan (1) CHF (congestive heart failure): Qualifiers: Heart failure chronicity: unspecified Heart failure type: unspecified Qualified Code(s): I50.9 - Heart failure, unspecified Code(s): I50.9 - Heart failure, unspecified Status: Acute Assessment and Plan: 60 y/o male with h/o CAD s/p CABG (per pt in his late 30s) with no recent follow up with cardiology for years, active tobacco abuse who presents with lower ext edema Continue IV diuresis. Will increase lasix dose to 40 mg BID 2D echo still pending Continue Metoprolol as at home. Will need ACI if LV dysfunction noted Will also need ischemic eval once better compensated from CHF standpoint (2) Coronary artery disease involving autologous artery coronary bypass graft: Code(s): I25.810 - Atherosclerosis of coronary artery bypass graft(s) without angina pectoris Status: Acute Assessment and Plan: He is on plavix at home and will continue with that. Continue Atorvastatin (3) Pleural effusion: Code(s): J90 - Pleural effusion, not elsewhere classified Status: Acute Assessment and Plan: likely is due to congestive heart failure, agree with diuresis and follow up input and outputs (4) Hypokalemia: Code(s): E87.6 - Hypokalemia Status: Acute (5) Acute respiratory failure with hypoxia: Code(s): J96.01 - Acute respiratory failure with hypoxia Status: Acute Additional Plan Thank you for allowing me to participate in this patient's care, I will be following up with you. Please do not hesitate to call me for any other inquiry Subjective Date/time seen: 11/02/20 10:34 He feels better compared to admission. Leg edema is improving as well as dyspnea Review of Systems Review of Systems: ROS unobtainable: Yes unobtainable due to mental status Exam Narrative: Exam Narrative: Awake alert oriented x3 not in acute distress Neck is supple no obvious JVD, no carotid bruit Chest: decreased breathing sound at the bases noted Cardiovascular: Regular rate and rhythm, 2/6 systolic murmur noted left sternal border Abdomen: Soft nontender bowel sounds positive Extremities: +3 edema noted bilaterally with significant skin discoloration Objective Data Vital Signs Vital Signs: Vital Signs - 24 hr 11/01/20 12:00 11/01/20 14:33 11/01/20 14:55 Temperature 36.8 C Pulse Rate 75 72 72 Respiratory Rate 22 H 18 18 Blood Pressure 99/59 L 97/39 L 96/54 L Pulse Oximetry 90 90 98 11/01/20 16:00 11/01/20 20:00 11/01/20 20:15 Temperature 36.7 C 36.6 C Pulse Rate 72 73 72 Respiratory Rate 22 H 20 Blood Pressure 109/55 L 97/49 L Pulse Oximetry 90 92 11/02/20 00:00 11/02/20 04:00 11/02/20 09:39 Temperature Pulse Rate 76 74 80 Respiratory Rate Blood Pressure Pulse Oximetry 11/02/20 10:20 Temperature Pulse Rate Respiratory Rate Blood Pressure Pulse Oximetry 92 Intake/Output Intake/Output: Intake & Output 10/30/20 10/31/20 11/01/20 11/02/20 23:59 23:59 23:59 23:59 Intake Total 0 Output Total 1375 Balance -1375 Meds/Results Medications: Active Medications Generic Name Dose Route Start Last Admin Trade Name Freq PRN Reason Stop Dose Admin Albuterol 2 puff 11/01/20 20:00 11/02/20 09:35 Albuterol Sulfate (*Sp) Inhaler INHALATION 2 puff Q12HRT JOSE Administration Alprazolam 1 mg 11/01/20 09:00 11/02/20 09:36 Alprazolam (*Crx) 0.5 Mg Tablet PO 1 mg BID JOSE Administration Atorvastatin Calcium 20 mg 11/01/20 09:00 11/02/20 09:37 Atorvastatin 20 Mg Tablet PO 20 mg DAILY JOSE Administration Clopidogrel Bisulfate 75 mg 11/01/20 09:00 11/02/20 09:37 Clopidogrel Bisulfate 75 Mg Tablet PO 75 mg DAILY JOSE Administration Furosemide 40 mg 11/02/20 09:00 11/02/20 09:37 Furosemide Inj 40 Mg/4 Ml Vial IV PUSH 40 mg DAILY JOSE Administration Metoprol
--- NOTE | 2020-11-02 17:16 | PM.IMPN ---
Progress Note: A&P Assessment and Plan (1) Acute respiratory failure with hypoxia: Code(s): J96.01 - Acute respiratory failure with hypoxia Status: Acute Assessment and Plan: CURRENTLY ON SUPPLEMENTAL OXYGEN CHEST X-RAY SIGNIFICANT FOR MODERATE SIDE RIGHT PLEURAL EFFUSION CT ANGIO NEGATIVE FOR PULMONARY EMBOLISM SUPPORTIVE CARE INCENTIVE SPIROMETRY ALBUTEROL BREATHING TREATMENT History of congestive heart failure in the past with elevated BNP noted. Currently of oxygen with good saturation\ continue to monitor (2) Pleural effusion: Code(s): J90 - Pleural effusion, not elsewhere classified Status: Acute Assessment and Plan: CT-GUIDED RIGHT-SIDED THORACENTESIS done 11/01 Pleural fluid WBC count 1117 per micro L with 71% neutrophils cytology was negative for malignant cells Pleural fluid analysis is pending (3) Coronary artery disease involving autologous artery coronary bypass graft: Code(s): I25.810 - Atherosclerosis of coronary artery bypass graft(s) without angina pectoris Status: Acute Assessment and Plan: CONTINUE METOPROLOL CONTINUE PLAVIX CONTINUE STATIN (4) CHF (congestive heart failure): Qualifiers: Heart failure chronicity: unspecified Heart failure type: unspecified Qualified Code(s): I50.9 - Heart failure, unspecified Code(s): I50.9 - Heart failure, unspecified Status: Acute Assessment and Plan: PATIENT IS BUMETANIDE AND LASIX HE HAS CONTRACTION ALKALOSIS diuresis started. Echocardiogram ordered and is pending cardiology consulted appreciate his recommendations (5) Hypokalemia: Code(s): E87.6 - Hypokalemia Status: Acute Assessment and Plan: LIKELY SECONDARY TO OVER DIURESIS REPLACE NEEDED (6) Metabolic alkalosis: Code(s): E87.3 - Alkalosis Status: Acute Assessment and Plan: LIKELY SECONDARY TO OVER DIURESIS (7) Anemia: Code(s): D64.9 - Anemia, unspecified Status: Acute Assessment and Plan: hemoglobin noted to be 8. hemoglobin is down to 7.5 today Reviewed labs from the past from his primary care doctor's office his hemoglobin was down to 6.2 on 10/06/2020 with ferritin level of 12 and increased iron binding capacity he recently had a GI workup in September at the hospital over upper endoscopy and colonoscopy done which was reportedly unremarkable he needed to blood transfusion earlier this month he has a follow-up appointment with the Hematology-Oncology in mid November CT scan shows enlarged spleen/ anasarca and ascites status cirrhosis (8) DVT prophylaxis: Code(s): Z29.9 - Encounter for prophylactic measures, unspecified Status: Acute Assessment and Plan: SCDs under to evaluate the reason for anemia (9) Iron deficiency anemia: Code(s): D50.9 - Iron deficiency anemia, unspecified Status: Acute Assessment and Plan: will recheck the levels benefit from iron infusion while he is here Subjective Date/time seen: 11/02/20 17:16 Interval history: patient feels better today. Reports his shortness of breath has improved. He denies any chest pain. No fever or chills. He wants to go home. Review of Systems Review of Systems: All systems reviewed & are unremarkable except as noted in HPI and below Exam Narrative: Exam Narrative: GENERAL: The patient is well developed, More alert today not in acute distress HEENT: Nonicteric sclerae, PERRLA, EOMI. Oropharynx clear. Moist mucous membranes. Conjunctivae appear well perfused. CHEST: Chest wall is nontender. HEART: Regular rate and rhythm without murmur, rubs, or gallops LUNGS: decreased breath sound bilaterally no added sounds heard. no respiratory distress ABDOMEN: Soft, positive bowel sounds, non-tender, no organomegaly. SKIN: No rash, no excessive bruising, petechiae, or purpura. NEUROLOGIC: Cranial nerves II-XII intact, alert and conversant, no gross
[2020-11-02 19:51] LABS: Lactate Dehydrogenase 561 U/L (313-618)
[2020-11-02 20:17] LABS: Iron 55 ug/dL (49-181)
[2020-11-02] MEDS: PRIMIDONE 50 MG TABLET PO (20:21)
[2020-11-02 20:26] LABS: Percent Iron Saturation 18 % (20-50)
[2020-11-02 21:00] LABS: Folic Acid 4.3 ng/mL (2.76->20)
[2020-11-03] VITALS (11 sets, daily range): BP systolic 93–110; BP diastolic 46–54; PULSE 73–86; RESP 16–20; TEMP 36.1–36.9; O2SAT 94–96
[2020-11-03 06:00] LABS: Basophils Absolute Auto 0.1 K/mm3 (0.0-0.1); Basophils Percent Auto 0.7 % (0.2-1.2); Eosinophils Absolute Auto 0.3 K/mm3 (0-0.3); Eosinophils Percent Auto 4.2 % (0-4.4); Hematocrit 25.2 % (42.0-52.0); Hemoglobin 7.7 g/dL (14.0-18.0); Immature Granulocyte Absolute 0.03 K/mm3 (0.00-0.031); Immature Granulocyte Percent A 0.4 % (0-0.5); Lymphocytes Absolute Auto 1.22 K/mm3 (0.9-3.2); Lymphocytes Percent Auto 18.2 % (18.3-44.2); Mean Corpuscular HGB Conc 30.6 g/dl (32-36); Mean Corpuscular Volume 81.8 fl (80-100); Mean Platelet Volume 9.1 fl (7.4-10.4); Monocytes Absolute Auto 0.7 K/mm3 (0.1-0.6); Monocytes Percent Auto 9.7 % (2.6-8.5); Neutrophils Absolute Auto 4.5 K/mm3 (1.3-6.7); Neutrophils Percent Auto 66.8 % (45.5-73.1); Platelet Count Result 204 k/mm3 (150-375); Red Blood Count 3.08 M/mm3 (4.6-6.20); Red Cell Distribution Width 22.2 % (11.5-14.5); White Blood Count 6.7 K/mm3 (4.5-10.0)
[2020-11-03 06:07] LABS: Alanine Aminotransferase 10 U/L (4-50); Albumin Level 2.9 g/dL (3.5-5.1); Alkaline Phosphatase 95 U/L (38-126); Anion Gap 4 mmol/L (8-16); Aspartate Amino Transferase 37 U/L (17-59); Bilirubin,Total 2.2 mg/dL (0.2-1.3); Blood Urea Nitrogen 8 mg/dL (9-20); Calcium 8.3 mg/dL (8.4-10.2); Carbon Dioxide 36 mmol/L (22-30); Chloride 95 mmol/L (98-107); Estimated CRCL calculation 111 ml/min; Estimated Glomerular Filt Rate > 60; Glucose 90 mg/dL (75-110); Potassium 3.4 mmol/L (3.4-5.0); Sodium 135 mmol/L (137-145)
[2020-11-03] MEDS: PANTOPRAZOLE 40 MG TABLET PO (08:13)
[2020-11-03] MEDS: SERTRALINE HCL 50 MG TABLET 100 MG PO (08:13)
[2020-11-03] MEDS: ATORVASTATIN 20 MG TABLET PO (08:13)
[2020-11-03] MEDS: METOPROLOL SUCCINATE EXT REL 50 MG TABCR PO (08:14)
[2020-11-03] MEDS: FUROSEMIDE INJ 40 MG/4 ML VIAL IV PUSH ×2 (08:14→18:17)
[2020-11-03] MEDS: POTASSIUM CHLORIDE 20 MEQ PACKET (FOR LIQUID) PO ×2 (08:14→18:17)
[2020-11-03] MEDS: CLOPIDOGREL BISULFATE 75 MG TABLET PO (08:14)
[2020-11-03] MEDS: ALBUTEROL SULFATE (*SP) INHALER 2 PUFF INHALATION (08:15)
[2020-11-03] MEDS: ALPRAZolam (*CRX) 0.5 MG TABLET 1 MG PO ×2 (08:17→18:21)
--- NOTE | 2020-11-03 10:31 | PM.PNCARD ---
Progress Note: A&P Assessment and Plan (1) CHF (congestive heart failure): Qualifiers: Heart failure chronicity: unspecified Heart failure type: unspecified Qualified Code(s): I50.9 - Heart failure, unspecified Code(s): I50.9 - Heart failure, unspecified Status: Acute Assessment and Plan: 60 y/o male with h/o CAD s/p CABG (per pt in his late 30s) with no recent follow up with cardiology for years, active tobacco abuse who presents with lower ext edema 2D echo reviewed. He has preserved LV function however right ventricle is dilated with mild RV systolic dysfunction. His pulmonary artery systolic pressure is elevated. PE has been ruled out on admission. Suspect he has underlying lung disease from jail smoking and also possible sleep apnea.Consider pulmonary eval His BP is borderline low. Will decrease metoprolol dose to 12.5 and continue current dose of IV lasix Will need ischemic eval once better compensated from CHF standpoint which can be arranged in outpatient settings (2) Coronary artery disease involving autologous artery coronary bypass graft: Code(s): I25.810 - Atherosclerosis of coronary artery bypass graft(s) without angina pectoris Status: Acute Assessment and Plan: Okay to hold plavix given worsening anemia. Continue ASA Continue Atorvastatin (3) Pleural effusion: Code(s): J90 - Pleural effusion, not elsewhere classified Status: Acute Assessment and Plan: s/p thoracentesis (4) Hypokalemia: Code(s): E87.6 - Hypokalemia Status: Acute Additional Plan Thank you for allowing me to participate in this patient's care, I will be following up with you. Please do not hesitate to call me for any other inquiry Subjective Date/time seen: 11/03/20 10:31 Underwent thoracentesis and feels his breathing is better. He continues to have significant lower ext edema Review of Systems Review of Systems: ROS unobtainable: Yes unobtainable due to mental status Constitutional: Constitutional: Reports as per HPI Cardiovascular: Cardiovascular: Reports as per HPI Respiratory: Respiratory: Reports as per HPI Exam Narrative: Exam Narrative: Awake alert oriented x3 not in acute distress Neck is supple no obvious JVD, no carotid bruit Chest: decreased breathing sound at the bases noted Cardiovascular: Regular rate and rhythm, 2/6 systolic murmur noted left sternal border Abdomen: Soft nontender bowel sounds positive Extremities: +3 edema noted bilaterally with significant skin discoloration Objective Data Vital Signs Vital Signs: Vital Signs - 24 hr 11/02/20 12:00 11/02/20 14:00 11/02/20 17:00 Temperature 36.3 C L Pulse Rate 76 76 75 Respiratory Rate 14 Blood Pressure 110/56 L Pulse Oximetry 96 11/02/20 20:00 11/02/20 21:08 11/03/20 00:00 Temperature 36.9 C Pulse Rate 76 77 75 Respiratory Rate 18 Blood Pressure 92/46 L Pulse Oximetry 96 11/03/20 04:00 11/03/20 04:56 11/03/20 09:15 Temperature 36.1 C L Pulse Rate 74 73 Respiratory Rate 20 Blood Pressure 98/46 L Pulse Oximetry 94 94 Intake/Output Intake/Output: Intake & Output 10/31/20 11/01/20 11/02/20 11/03/20 23:59 23:59 23:59 23:59 Intake Total 0 980 630 Output Total 1375 Balance -1375 980 630 Meds/Results Medications: Active Medications Generic Name Dose Route Start Last Admin Trade Name Freq PRN Reason Stop Dose Admin Albuterol 2 puff 11/01/20 20:00 11/03/20 08:15 Albuterol Sulfate (*Sp) Inhaler INHALATION 2 puff Q12HRT JOSE Administration Alprazolam 1 mg 11/01/20 09:00 11/03/20 08:17 Alprazolam (*Crx) 0.5 Mg Tablet PO 1 mg BID JOSE Administration Atorvastatin Calcium 20 mg 11/01/20 09:00 11/03/20 08:13 Atorvastatin 20 Mg Tablet PO 20 mg DAILY JOSE Administration Clopidogrel Bisulfate 75 mg 11/01/20 09:00 11/03/20 08:14 Clopidogrel Bisulfate 75 Mg Tablet PO
--- NOTE | 2020-11-03 15:35 | PM.IMPN ---
Progress Note: A&P Assessment and Plan (1) Acute respiratory failure with hypoxia: Code(s): J96.01 - Acute respiratory failure with hypoxia Status: Acute Assessment and Plan: CURRENTLY ON SUPPLEMENTAL OXYGEN CHEST X-RAY SIGNIFICANT FOR MODERATE SIDE RIGHT PLEURAL EFFUSION CT ANGIO NEGATIVE FOR PULMONARY EMBOLISM SUPPORTIVE CARE INCENTIVE SPIROMETRY ALBUTEROL BREATHING TREATMENT History of congestive heart failure in the past with elevated BNP noted. Currently of oxygen with good saturation\ continue to monitor Echo with dilated RV and mild RV systolic dysfunction PE ruled out possible underlying pulmonary hypertension status sleep apnea Discussed case with Cardiology Ruled out PE from his recent CT angiogram Will get do apnea link test [facility] Cardiology recommends pulmonary evaluation. Will consult pulmonary (2) Pleural effusion: Code(s): J90 - Pleural effusion, not elsewhere classified Status: Acute Assessment and Plan: CT-GUIDED RIGHT-SIDED THORACENTESIS done 11/01 Pleural fluid WBC count 1117 per micro L with 71% neutrophils cytology was negative for malignant cells Pleural fluid analysis is pending still Suspect transudative secondary to underlying history of congestive heart failure / cirrhosis of liver (3) Coronary artery disease involving autologous artery coronary bypass graft: Code(s): I25.810 - Atherosclerosis of coronary artery bypass graft(s) without angina pectoris Status: Acute Assessment and Plan: CONTINUE METOPROLOL CONTINUE PLAVIX CONTINUE STATIN no history of stents recently with ongoing anemia will switch to aspirin only Apparently he has been on aspirin Plavix as an outpatient basis (4) CHF (congestive heart failure): Qualifiers: Heart failure chronicity: unspecified Heart failure type: unspecified Qualified Code(s): I50.9 - Heart failure, unspecified Code(s): I50.9 - Heart failure, unspecified Status: Acute Assessment and Plan: PATIENT IS BUMETANIDE AND LASIX HE HAS CONTRACTION ALKALOSIS diuresis started. Echocardiogram reviewed with cardiology and show signs of right-sided heart failure (5) Hypokalemia: Code(s): E87.6 - Hypokalemia Status: Acute Assessment and Plan: LIKELY SECONDARY TO OVER DIURESIS REPLACE NEEDED (6) Metabolic alkalosis: Code(s): E87.3 - Alkalosis Status: Acute Assessment and Plan: LIKELY SECONDARY TO OVER DIURESIS (7) Anemia: Code(s): D64.9 - Anemia, unspecified Status: Acute Assessment and Plan: hemoglobin noted to be 8. hemoglobin is down to 7.5 today Reviewed labs from the past from his primary care doctor's office his hemoglobin was down to 6.2 on 10/06/2020 with ferritin level of 12 and increased iron binding capacity he recently had a GI workup in September at the hospital over upper endoscopy and colonoscopy done which was reportedly unremarkable he needed to blood transfusion earlier this month he has a follow-up appointment with the Hematology-Oncology in mid November CT scan shows enlarged spleen/ anasarca and ascites status cirrhosis Discussed with his sister and the patient He also suffers from underlying depression and has been noncompliant with medical treatments and followups Will consult hematology for further direction on his cause of anemia (8) DVT prophylaxis: Code(s): Z29.9 - Encounter for prophylactic measures, unspecified Status: Acute Assessment and Plan: SCDs under to evaluate the reason for anemia (9) Iron deficiency anemia: Code(s): D50.9 - Iron deficiency anemia, unspecified Status: Acute Assessment and Plan: will recheck the levels benefit from iron infusion while he is here Ferritin level at 60 better than what was in the past likely had an iron treatment recently Subjective Date/time seen: 11/03/20 15:35 Interval history: continues to w
--- NOTE | 2020-11-03 16:40 | PM.CNPUL ---
Assessment and Plan Assessment and plan (1) COPD (chronic obstructive pulmonary disease): Code(s): J44.9 - Chronic obstructive pulmonary disease, unspecified Status: Acute Assessment and Plan: patient with a history of chronic tobacco exposure and carries a diagnosis of COPD. I have no PFTs at this time. Patient had a 1 L nasal cannula blood gas on admission of 7.55/46/58 indicating there was no chronic hypercarbia at that time. Currently patient's saturations are 94% on room air. I do not believe the patient has an active COPD exacerbation or any active infection at this time. Patient is very symptomatic and this is likely multifactorial due to his COPD and fluid overload. patient states that at home he takes Combivent 2 puffs b.i.d. p.r.n.. At this time I will initiate long-acting beta agonist and long-acting muscarinic antagonist and will place him on Anoro Ellipta 62.5-25 at 1 puff q.day. I do not think he needs systemic or inhaled steroids or antibiotics at this point. Will follow with you. (2) Pulmonary hypertension: Code(s): I27.20 - Pulmonary hypertension, unspecified Status: Acute Assessment and Plan: Patient with estimated pulmonary arterial systolic pressure of 45-50 with mildly dilated and mild RV systolic dysfunction on his echocardiogram. Etiology of this includes COPD, obstructive sleep apnea, obesity hypoventilation syndrome, and fluid overload. I will place him on long-acting beta agonist and muscarinic antagonist for his COPD as mentioned above. I will check an overnight oximetry on room air to assess for nocturnal hypoxemia related to either COPD or obstructive sleep apnea. I will check a ABG on room air now to assess him for hypercarbic respiratory failure. Of note the patient tells me he would not be able to tolerate a CPAP or BiPAP mask and he is not even sure he would be able to sleep with nasal cannula oxygen on. He just cannot tolerate anything on his face. At this time will refer for more testing to determine if he requires this type of treatment. I agree with as aggressive diuresis as tolerated by his cardiac and renal systems per Cardiology and hospitalist team. Will follow with you. History of Present Illness History of Present Illness Consult date: 11/03/20 Requesting physician: Graham Lazo MD Reason for consult: pulmonary hypertension Chief complaint: hypokalemia Narrative: This is a new pulmonary consultation for pulmonary hypertension 60-year-old male with a history of coronary artery disease status post CABG many years ago, congestive heart failure, hypertension, and COPD. Patient presented to the emergency department on 10/31 with shortness of breath with anasarca and was found to have a Serum bicarbonate of 39, BNP of 1250, a D-dimer of 1.68, An ABG on 1 L nasal cannula with a pH of 7.55/46/58, a CT angiogram of the chest demonstrated no pulmonary embolism but a moderate right pleural effusion. patient is COVID test is negative. Patient was admitted and treated with IV Lasix. Patient had a right thoracentesis on 11/01, 1000 mL of fluid was removed, the cell count showed 71% neutrophils, 15% lymphocytes, 2% monocytes, 6% macrophages, 1% mesothelial cells. the remainder of the chemistries are pending at this time. Patient tells me that he felt immediately better after they did the thoracentesis. Patient had an echocardiogram on 10/31 that demonstrates a normal LV systolic function at 60-65%, the right ventricle is mildly dilated with mild RV systolic dysfunction, there is mild tricuspid regurg with mild pulmonary hypertension with an estimated pulmonary arterial systolic pressure 45-50. Regarding patient's COPD he tells me he was diagnosed 10 years ago. Patient is a tobacco user from age 14-1 week ago and he smoked 1/2 pack per day for a total of 23 pack years. Patient denies vaping, illicit drug use, sandblasting, welding, asbes
[2020-11-03 16:44] LABS: Alveolar/Arterial O2 Gradient 44.5 mmHg; Base Excess ABG 11.8 mEq/l (+/-2.0); Fractional Inspired Oxygen 21 %; HCO3 ABG 35.3 mEq/l (22.0-26.0); Oxygen Content ABG 11.6 %vol (16.0-22.0); Oxygen Saturation ABG 91.9 % (95.0-100.0); Oxyhemoglobin 88.3 % THb (90.0-100.0); PCO2 ABG 41.9 mmHg (35.0-45.0); PO2 ABG 55.1 mmHg (80.0-100.0); PO2 FiO2 Ratio Arterial Blood 2.62 %; Total Hemoglobin 9.3 g/dL (12.0-18.0)
[2020-11-03 16:49] LABS: Device ROOM AIR; Modified Allen's Test Pass; Site Drawn LEFT RADIAL; pH ABG 7.544 (7.350-7.450)
[2020-11-03 16:56] LABS: IFOB Positive Control Positive; Immunochemical Fecal Occult Bl Positive (N)
[2020-11-03] MEDS: UMECLIDINIUM/VILANTEROL 62.5-25 MCG ELLIPTA 1 PUFF INHALATION (18:21)
[2020-11-03 19:49] LABS: Glucose Pleural Fluid 91 mg/dL; LDH Pleural Fluid 314 U/L; Total Protein Pleural Fluid <3.0 g/dL
[2020-11-03] MEDS: PRIMIDONE 50 MG TABLET PO (20:36)
[2020-11-04] VITALS (8 sets, daily range): BP systolic 107; BP diastolic 61; PULSE 75–90; RESP 18; TEMP 36.1; O2SAT 90–97
[2020-11-04 06:42] LABS: Basophils Percent Auto 0.6 % (0.2-1.2); Eosinophils Absolute Auto 0.2 K/mm3 (0-0.3); Eosinophils Percent Auto 3.6 % (0-4.4); Hematocrit 23.8 % (42.0-52.0); Hemoglobin 7.3 g/dL (14.0-18.0); Immature Granulocyte Absolute 0.03 K/mm3 (0.00-0.031); Immature Granulocyte Percent A 0.5 % (0-0.5); Lymphocytes Absolute Auto 1.36 K/mm3 (0.9-3.2); Lymphocytes Percent Auto 21.4 % (18.3-44.2); Mean Corpuscular HGB Conc 30.7 g/dl (32-36); Mean Corpuscular Hemoglobin 24.7 pg (26-34); Mean Corpuscular Volume 80.7 fl (80-100); Mean Platelet Volume 9.6 fl (7.4-10.4); Monocytes Absolute Auto 0.6 K/mm3 (0.1-0.6); Monocytes Percent Auto 9.9 % (2.6-8.5); Neutrophils Absolute Auto 4.1 K/mm3 (1.3-6.7); Platelet Count Result 214 k/mm3 (150-375); Red Blood Count 2.95 M/mm3 (4.6-6.20); Red Cell Distribution Width 22.4 % (11.5-14.5); White Blood Count 6.4 K/mm3 (4.5-10.0)
[2020-11-04 06:49] LABS: Alanine Aminotransferase 9 U/L (4-50); Alkaline Phosphatase 94 U/L (38-126); Anion Gap 5 mmol/L (8-16); Aspartate Amino Transferase 34 U/L (17-59); Bilirubin,Total 2.1 mg/dL (0.2-1.3); Blood Urea Nitrogen 9 mg/dL (9-20); Calcium 8.3 mg/dL (8.4-10.2); Carbon Dioxide 34 mmol/L (22-30); Chloride 95 mmol/L (98-107); Estimated CRCL calculation 111 ml/min; Estimated Glomerular Filt Rate > 60; Glucose 87 mg/dL (75-110); Potassium 3.9 mmol/L (3.4-5.0); Sodium 134 mmol/L (137-145)
--- NOTE | 2020-11-04 07:26 | PM.PNPUL ---
Progress Note: A&P Assessment and Plan (1) COPD (chronic obstructive pulmonary disease): Code(s): J44.9 - Chronic obstructive pulmonary disease, unspecified Status: Acute Assessment and Plan: 11/03 Patient with a history of chronic tobacco exposure and carries a diagnosis of COPD. I have no PFTs at this time. Patient had a 1 L nasal cannula blood gas on admission of 7.55/46/58 indicating there was no chronic hypercarbia at that time. Currently patient's saturations are 94% on room air. I do not believe the patient has an active COPD exacerbation or any active infection at this time. Patient is very symptomatic and this is likely multifactorial due to his COPD and fluid overload. Patient states that at home he takes Combivent 2 puffs b.i.d. p.r.n.. At this time I will initiate long-acting beta agonist and long-acting muscarinic antagonist and will place him on Anoro Ellipta 62.5-25 at 1 puff q.day. I do not think he needs systemic or inhaled steroids or antibiotics at this point. 11/04 Tolerating anoro Ellipta, no wheezes. Breathing back to his normal. Resting room air blood gas was with a pH of 7.54/42/55 on 11/03 so he does not have hypercarbic respiratory failure. Patient had a apnea link test on room air and at 2:00 a.m. or about 3 hours and 17 minutes he removed the device because he could not tolerate the monitoring. His average saturation was 90%, lowest saturation was 80%. Time with saturation less than or equal to 88% was 17 minutes or 10% of the monitored time. His oxygen desaturation index was 6.8 and his AHI was 3.1. He tells me that he will go home today. Suitable for discharge from pulmonary perspective on these pulmonary medications: Beta agonist and muscarinic antagonist that insurance will cover (Anoro Ellipta 62.5/25 at 1 puff Q day, stiolto respimat 2.5/2.5 at 1 puff BID, combivent respimat at 2 puffs Q 4 HR or separate albuterol and atrovent inhalers at 2 puffs Q 4 HR) Rescue albuterol 2 puffs Q 4 H PRN SOB or wheezing Oxygen 1 L NC at night Daytime oxygen per Home O2 assessment which I have ordered today Follow up in pulmonary clinic 4 weeks. I gave him our business card. Of note he tells me that he would not wear a CPAP evenif he had sleep apnea. Although his APnea link has a AHI of 3.8 he should have this issue re addressed as an outpatient and if he is agreeable to a dental aplliance of a CPAP mask he should have a sleep study to formally assess for QUIQUE. Discussed with Dr. Lazo, will sign off, call with questions. (2) Pulmonary hypertension: Code(s): I27.20 - Pulmonary hypertension, unspecified Status: Acute Assessment and Plan: 11/03 Patient with estimated pulmonary arterial systolic pressure of 45-50 with mildly dilated and mild RV systolic dysfunction on his echocardiogram. Etiology of this includes COPD, obstructive sleep apnea, obesity hypoventilation syndrome, and fluid overload. Negative CTA on admission. I will place him on long-acting beta agonist and muscarinic antagonist for his COPD as mentioned above. I will check an overnight oximetry on room air to assess for nocturnal hypoxemia related to either COPD or obstructive sleep apnea. I will check a ABG on room air now to assess him for hypercarbic respiratory failure. Of note the patient tells me he would not be able to tolerate a CPAP or BiPAP mask and he is not even sure he would be able to sleep with nasal cannula oxygen on. He just cannot tolerate anything on his face. At this time will refer for more testing to determine if he requires this type of treatment. I agree with as aggressive diuresis as tolerated by his cardiac and renal systems per Cardiology and hospitalist team. 11/04 Resting room air blood gas was with a pH of 7.54/42/55 on 11/03 so he does not have COPD with hypercarbic respiratory failure or obesity hypoventilation syndrome requiring noninvasive ventilation. His pulmonary hypertension i
[2020-11-04 07:51] LABS: Anisocytosis 1+ (NORMAL); Large Platelets Present; Platelet Estimate Adequate (Adequate); Poikilocytosis 1+ (NORMAL)
[2020-11-04 07:52] LABS: Ovalocytes 1+ (NORMAL)
--- NOTE | 2020-11-04 08:29 | PDONCCN ---
HPI - Date of Consult Date/Time: 11/04/20 08:30 Requesting Physician: Frankie Calzada MD Primary Care Provider: Russ De La Vega, - Consult Narrative Narrative: Faisal Suazo is a 60 year old male with HTN, DLP, CAD s/p CABG 19 y/a with no f/u with cardiology for many years, came in to the ED on 10/31/20 reporting moderate weakness and SOB with exertional dyspnea for 2 months, as well as LE edema and orthopnea. Was sent from his PCP's office due to desaturation to 84% on RA. CT chest in ED showed moderate R-sided pleural effusion, K+ of 2.4 and elevated BNP. Admitted and found to have acute diastolic heart failure with right heart failure. Thoracentesis performed on 11/01 with removal of 1,000 ml of clear yellow fluid, cytology negative for malignant cells. Hb since admission fluctuating between 7 and 8, with normal MCV. Patient denies any bleeding or bruising, no hematemesis or dark or bloody stools. No dizziness, CP, n/v or other symptoms. No history of cancer. He has an appointment to see Dr. Velazquez for his normocytic anemia, which is apparently not new, scheduled for 11/21/20. Review of Systems - Review of Systems All systems reviewed & are unremarkable except as noted in HPI and bel - Neurologic Reports system reviewed and no additional complaints, except as documented, Reports confusion, Reports weakness, Denies headache(s) FOR[facility]LY [facility], [facility]1983 Family History: Family History (Last Updated 10/31/20 @ 23:10 by Aicha Mendoza RN) Father Congestive heart failure - Social History Social History: Social History (Last Reviewed 10/31/20 @ 17:09 by Jes Louis MD) Gender Identity: Gender identity (if verbalized by the patient): Male Alcohol Use: Alcohol intake: never Substance Use: Substance use: never Others: Spiritual care concerns: No Smoking Status: Smoking status: Current every day smoker Tobacco type: cigarettes Smoking Pack-years: Smoking packs per day: 0.5 Smoking cigarettes per day: 10.0 Meds Home Medications Medication Instructions Recorded Confirmed Type albuterol sulfate [ProAir HFA] 2 inh INHALATION BID 10/31/20 10/31/20 History alprazolam [Xanax] 1 mg PO BID 10/31/20 10/31/20 History atorvastatin [Lipitor] 1 mg PO DAILY 10/31/20 10/31/20 History furosemide [Lasix] 40 mg PO BID 10/31/20 10/31/20 History omeprazole 1 mg PO DAILY 10/31/20 10/31/20 History primidone [Mysoline] 50 mg PO QHS 10/31/20 10/31/20 History sertraline [Zoloft] 100 mg PO DAILY 10/31/20 10/31/20 History aspirin 81 mg PO QAM #30 tablet 11/04/20 Rx ferrous sulfate 325 mg PO DAILY #30 tablet 11/04/20 Rx metoprolol succinate 12.5 mg PO DAILY #30 ea 11/04/20 Rx potassium chloride 10 meq PO BID #30 ea 11/04/20 Rx umeclidinium-vilanterol [Anoro 1 ea INHALATION DAILYRT #60 ea 11/04/20 Rx Ellipta] Allergies Allergy/AdvReac Type Severity Reaction Status Date / Time penicillin G Allergy Unknown Verified 10/10/20 09:01 Results - Labs CBC & Chem 7: 11/04/20 05:57 11/04/20 05:57 Labs: Short CBC 11/04/20 Range/Units 05:57 WBC 6.4 (4.5-10.0) K/mm3 Hgb 7.3 L (14.0-18.0) g/dL Hct 23.8 L (42.0-52.0) % Plt Count 214 (150-375) k/mm3 BMP 11/04/20 05:57 Sodium 134 L Potassium 3.9 Chloride 95 L Carbon Dioxide 34 H BUN 9 Creatinine 0.80 Glucose 87 Calcium 8.3 L Liver Function 11/04/20 Range/Units 05:57 Total Bilirubin 2.1 H (0.2-1.3) mg/dL AST 34 (17-59) U/L ALT 9 (4-50) U/L Alkaline Phosphatase 94 (38-126) U/L Albumin 3.0 L (3.5-5.1) g/dL Assessment and Plan (1) Anemia Code(s): D64.9 - Anemia, unspecified Status: Acute Assessment and Plan: Normocytic anemia: Labs indicating iron deficiency, but with ferritin WNL would not give IV Fe at this time. Ok to start oral supplementation. This was being worked up by PCP recently, and GI workup was performed and apparently unremarkable. Per
--- NOTE | 2020-11-04 08:44 | PM.PNCARD ---
Progress Note: A&P Assessment and Plan (1) CHF (congestive heart failure): Qualifiers: Heart failure chronicity: unspecified Heart failure type: unspecified Qualified Code(s): I50.9 - Heart failure, unspecified Code(s): I50.9 - Heart failure, unspecified Status: Acute Assessment and Plan: 60 y/o male with h/o CAD s/p CABG (per pt in his late 30s) with no recent follow up with cardiology for years, active tobacco abuse who presents with lower ext edema Acute diastolic heart failure with right heart failure which is multifactorial with underlying COPD and sleep apnea He would like to go home. 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 Decreased metoprolol dose to 12.5 this admission (2) Coronary artery disease involving autologous artery coronary bypass graft: Code(s): I25.810 - Atherosclerosis of coronary artery bypass graft(s) without angina pectoris Status: Acute Assessment and Plan: Okay to hold plavix given worsening anemia. Continue ASA Continue Atorvastatin (3) Pleural effusion: Code(s): J90 - Pleural effusion, not elsewhere classified Status: Acute Assessment and Plan: s/p thoracentesis (4) Hypokalemia: Code(s): E87.6 - Hypokalemia Status: Acute Additional Plan Thank you for allowing me to participate in this patient's care, I will be following up with you. Please do not hesitate to call me for any other inquiry Subjective Date/time seen: 11/04/20 08:44 He would like to go home as he feel he is breathing better. Still with significant lower ext edema. He is net positive almost a liter over the last 24 hours. Does not appears he is following fluid restriction Review of Systems Constitutional: Constitutional: Reports as per HPI Cardiovascular: Cardiovascular: Reports as per HPI Respiratory: Respiratory: Reports as per HPI Exam Narrative: Exam Narrative: Awake alert oriented x3 not in acute distress Neck is supple no obvious JVD, no carotid bruit Chest: decreased breathing sound at the bases noted Cardiovascular: Regular rate and rhythm, 2/6 systolic murmur noted left sternal border Abdomen: Soft nontender bowel sounds positive Extremities: +3 edema noted bilaterally with significant skin discoloration Objective Data Vital Signs Vital Signs: Vital Signs - 24 hr 11/03/20 09:15 11/03/20 12:00 11/03/20 14:00 Temperature 36.8 C Pulse Rate 82 85 Respiratory Rate 16 Blood Pressure 110/54 L Pulse Oximetry 94 94 11/03/20 16:00 11/03/20 20:00 11/03/20 20:47 Temperature 36.9 C Pulse Rate 77 78 77 Respiratory Rate 20 Blood Pressure 93/52 L Pulse Oximetry 96 96 11/03/20 23:11 11/04/20 00:00 11/04/20 04:00 Temperature Pulse Rate 78 77 Respiratory Rate Blood Pressure Pulse Oximetry 94 11/04/20 06:00 Temperature 36.1 C L Pulse Rate 75 Respiratory Rate 18 Blood Pressure 107/61 Pulse Oximetry 90 Intake/Output Intake/Output: Intake & Output 11/01/20 11/02/20 11/03/20 11/04/20 23:59 23:59 23:59 23:59 Intake Total 0 980 1900 Output Total 1375 775 450 Balance -1019 941 8078 -450 Meds/Results Medications: Active Medications Generic Name Dose Route Start Last Admin Trade Name Freq PRN Reason Stop Dose Admin Albuterol 2 puff 11/03/20 16:58 Albuterol Sulfate (*Sp) Inhaler INHALATION Q4HR PRN SOB or wheezing Alprazolam 1 mg 11/01/20 09:00 11/03/20 18:21 Alprazolam (*Crx) 0.5 Mg Tablet PO 1 mg BID JOSE Administration Aspirin 81 mg 11/04/20 09:00 Aspirin 81 Mg Enteric Tablet PO QAM JOSE Atorvastatin Calcium 20 mg 11/01/20 09:00 11/03/20 08:13 Atorvastatin 20 Mg Tablet PO 20 mg DAILY JOSE Administration Furosemide 40 mg 11/02/20 17:00 11/03/20 18:17 Furosemide Inj 40 Mg/4 Ml Vial IV PUSH 40 mg BID JOSE Admini
[2020-11-04 09:02] LABS: Lactate Dehydrogenase 510 U/L (313-618)
[2020-11-04] MEDS: ATORVASTATIN 20 MG TABLET PO (09:10)
[2020-11-04] MEDS: FUROSEMIDE INJ 40 MG/4 ML VIAL IV PUSH (09:11)
[2020-11-04] MEDS: SERTRALINE HCL 50 MG TABLET 100 MG PO (09:11)
[2020-11-04] MEDS: ASPIRIN 81 MG ENTERIC TABLET PO (09:11)
[2020-11-04] MEDS: PANTOPRAZOLE 40 MG TABLET PO (09:11)
[2020-11-04] MEDS: POTASSIUM CHLORIDE 20 MEQ PACKET (FOR LIQUID) PO (09:11)
[2020-11-04] MEDS: ALPRAZolam (*CRX) 0.5 MG TABLET 1 MG PO (09:13)
[2020-11-04] MEDS: UMECLIDINIUM/VILANTEROL 62.5-25 MCG ELLIPTA 1 PUFF INHALATION (09:14)
--- NOTE | 2020-11-04 11:13 | PCRCNOTE ---
HOME O2 EVAL COMPLETE, NO REQUIREMENTS
--- NOTE | 2020-11-04 12:05 | PM.DS ---
DS: Admitting Diagnosis Admitting Diagnosis Admitting Diagnosis: Shortness of breath DS: Discharge Diagnosis Discharge Diagnosis (1) Pulmonary hypertension: Code(s): I27.20 - Pulmonary hypertension, unspecified Status: Acute (2) COPD (chronic obstructive pulmonary disease): Code(s): J44.9 - Chronic obstructive pulmonary disease, unspecified Status: Acute (3) Iron deficiency anemia: Code(s): D50.9 - Iron deficiency anemia, unspecified Status: Acute (4) Anemia: Code(s): D64.9 - Anemia, unspecified Status: Acute (5) Metabolic alkalosis: Code(s): E87.3 - Alkalosis Status: Acute (6) Pleural effusion: Code(s): J90 - Pleural effusion, not elsewhere classified Status: Acute (7) Coronary artery disease involving autologous artery coronary bypass graft: Code(s): I25.810 - Atherosclerosis of coronary artery bypass graft(s) without angina pectoris Status: Acute (8) Hypokalemia: Code(s): E87.6 - Hypokalemia Status: Acute (9) Acute respiratory failure with hypoxia: Code(s): J96.01 - Acute respiratory failure with hypoxia Status: Acute (10) CHF (congestive heart failure): Qualifiers: Heart failure chronicity: unspecified Heart failure type: unspecified Qualified Code(s): I50.9 - Heart failure, unspecified Code(s): I50.9 - Heart failure, unspecified Status: Acute (11) Occult blood positive stool: Code(s): R19.5 - Other fecal abnormalities Status: Acute (12) Pleural effusion, right: Code(s): J90 - Pleural effusion, not elsewhere classified Status: Acute DS: Summary Hospital Course Hospital Course: This is a 60-year-old male WITH PAST MEDICAL HISTORY SIGNIFICANT FOR HYPERTENSION ,DYSLIPIDEMIA, MOVEMENT DISORDER, CORONARY ARTERY DISEASE. PATIENT COMES IN DUE TO SHORTNESS OF BREATH HE IS A POOR HISTORY DOES NOT GIVE MUCH HISTORY ON HIS ON WHICH I HAVE OBTAINED MAINLY ON REVIEW OF MEDICAL RECORDS AND EMERGENCY ROOM RECORDS. HE WAS AT HIS PRIMARY CARE PHYSICIAN'S OFFICE WHERE HE WENT DUE TO SHORTNESS OF BREATH AND HE WAS FOUND TO HAVE AN OXYGEN SATURATION IN THE LOW 80S AND WAS SENT OVER TO EMERGENCY ROOM. PRELIMINARY WORKUP IS SIGNIFICANT FOR A CT OF THE CHEST WITH MODERATE RIGHT-SIDED PLEURAL EFFUSION, CHEMISTRY WAS SIGNIFICANT FOR POTASSIUM OF 2.4 A BNP OF 1250 ABG WITH PO2 57. AT THE TIME OF MY VISIT PATIENT DENIED ANY DISCOMFORT. 1) Acute respiratory failure with hypoxia: started on supplemental oxygen with improvement. Chest x-ray with noted more did right-sided pleural effusion. CT angiogram negative for pulmonary embolism. Albuterol breathing treatment and supportive care started. He does have a history of congestive heart failure in the past along with cirrhosis of liver from his past alcohol use. Elevated BNP on admission he was started on diuresis. For evaluation of his right-sided pleural effusion thoracentesis was performed. Pleural fluid was noted to be exudative however concurrent diuresis might have affected the resolved. Follow-up chest x-ray after the thoracentesis showed resolution of pleural effusion without any recurrence. Echo was done which showed dilated RV and mild RV systolic dysfunction. Moderate pulmonary hypertension was noted. Apnea link was obtained during the hospitalization which did not show any evidence of obstructive sleep apnea. Pulmonary and cardiology was consulted during the hospital stay. He diuresed well and his breathing status improved significantly during the hospital stay on his walk test he did require any oxygen at rest and ambulation however he was evaluated for oxygen need at night and in and was noted to have significant hypoxia at night time. He was arranged for home oxygen at discharge at 2 liters/minute. He will continue to follow with cardiology and pulmonary as outpatient basis it also benefit from having a formal sleep a
[2020-11-04 22:47] LABS: Albumin Pleural Fluid 1.2 g/dL
[2020-11-07 12:15] LABS: Haptoglobin 159 mg/dL (43-212)
[2020-11-09 10:27] LABS: Amylase, Pleural Fluid 16 U/L
== END 2020-11-04 13:10 | disposition home or self-care (01) | DRG 291 ==
LOC: ANHED 19:46 → ANH3MEDSUR 11-01 01:07
PROVIDERS: Internal Medicine; Internal Medicine Medical Oncology; Internal Medicine Pulmonary Disease; Admitting Provider Emergency Medicine; Emergency Provider Emergency Medicine; PCP Internal Medicine; Visit Provider Internal Medicine
DX: I11.0 Hypertensive heart disease with heart failure (principal); J96.01 Acute respiratory failure with hypoxia; I50.31 Acute diastolic (congestive) heart failure; I25.810 Atherosclerosis of coronary artery bypass graft(s) without angina pectoris; E87.3 Alkalosis; G25.9 Extrapyramidal and movement disorder, unspecified; J91.8 Pleural effusion in other conditions classified elsewhere; I27.20 Pulmonary hypertension, unspecified; Z20.822 Contact with and (suspected) exposure to COVID-19; J44.9 Chronic obstructive pulmonary disease, unspecified; F17.210 Nicotine dependence, cigarettes, uncomplicated; E87.6 Hypokalemia; K74.60 Unspecified cirrhosis of liver; D50.9 Iron deficiency anemia, unspecified; R19.5 Other fecal abnormalities; E78.5 Hyperlipidemia, unspecified; Z79.899 Other long term (current) drug therapy; Z88.0 Allergy status to penicillin
CPT/HCPCS: 32555; 36415; 36600; 71045; 71046; 71275; 80048; 80053; 80076; 82042; 82150; 82274; 82607; 82728; 82746; 82805; 82945; 83010; 83540; 83550; 83615; 83735; 83880; 83986; 84157; 84478; 84484; 85025; 85380; 85610; 85730; 86850; 86900; 86901; 88104; 88108; 88305; 89051; 93005; 93306; 94618; 94762; 96374; 97161; 97165; 99285; A9270; C9803; G0378; J1940; J3480; Q9967; U0003; U0005

== ENCOUNTER 2020-11-21 15:18 | Outpatient (CLI) | payer BC, SELFPAY ==
[2020-11-21 15:47] LABS: Basophils Percent Auto 0.1 % (0.2-1.2); Eosinophils Absolute Auto 0.1 K/mm3 (0-0.3); Eosinophils Percent Auto 0.6 % (0-4.4); Hematocrit 24.7 % (42.0-52.0); Hemoglobin 7.5 g/dL (14.0-18.0); Immature Granulocyte Absolute 0.05 K/mm3 (0.00-0.031); Immature Granulocyte Percent A 0.6 % (0-0.5); Immature Reticulocyte Fraction 20.2 % (3.0-15.9); Lymphocytes Absolute Auto 0.82 K/mm3 (0.9-3.2); Lymphocytes Percent Auto 9.5 % (18.3-44.2); Mean Corpuscular HGB Conc 30.4 g/dl (32-36); Mean Corpuscular Hemoglobin 26.1 pg (26-34); Mean Corpuscular Volume 86.1 fl (80-100); Mean Platelet Volume 8.4 fl (7.4-10.4); Monocytes Absolute Auto 0.8 K/mm3 (0.1-0.6); Monocytes Percent Auto 9.3 % (2.6-8.5); Neutrophils Absolute Auto 6.9 K/mm3 (1.3-6.7); Neutrophils Percent Auto 79.9 % (45.5-73.1); Platelet Count Result 185 k/mm3 (150-375); Red Blood Count 2.87 M/mm3 (4.6-6.20); Red Cell Distribution Width 21.3 % (11.5-14.5); Reticulocyte Hemoglobin Conten 27.1 pg (28.2-35.7); Reticulocyte Percent 3.19 % (0.7-4.3); Reticulocytes Absolute 0.09 B/L (32.2-175.7); White Blood Count 8.6 K/mm3 (4.5-10.0)
[2020-11-21 17:06] LABS: Iron 28 ug/dL (49-181)
[2020-11-21 17:13] LABS: Alanine Aminotransferase 19 U/L (4-50); Albumin Level 3.8 g/dL (3.5-5.1); Alkaline Phosphatase 129 U/L (38-126); Anion Gap 10 mmol/L (8-16); Aspartate Amino Transferase 40 U/L (17-59); Bilirubin,Total 1.3 mg/dL (0.2-1.3); Blood Urea Nitrogen 13 mg/dL (9-20); Calcium 9.3 mg/dL (8.4-10.2); Carbon Dioxide 27 mmol/L (22-30); Chloride 97 mmol/L (98-107); Estimated Glomerular Filt Rate > 60; Glucose 111 mg/dL (65-110); Potassium 4.2 mmol/L (3.4-5.0); Sodium 134 mmol/L (137-145)
[2020-11-21 17:16] LABS: Percent Iron Saturation 7 % (20-50)
[2020-11-21 18:26] LABS: Folic Acid 4.4 ng/mL (2.76->20)
[2020-11-24 16:02] LABS: Soluble Transferrin Receptor 2.15 mg/L (0.76-1.76)
== END 2020-11-21 15:19 | disposition home or self-care (01) ==
PROVIDERS: PCP Internal Medicine; Visit Provider Internal Medicine Hematology & Oncology
DX: D64.9 Anemia, unspecified (principal)
CPT/HCPCS: 36415; 80053; 82607; 82728; 82746; 83540; 83550; 84238; 85025; 85046

== ENCOUNTER 2020-12-03 11:26 | Inpatient (IN) | payer BC, SELFPAY ==
[2020-12-03] VITALS (18 sets, daily range): BP systolic 93–123; BP diastolic 49–68; PULSE 70–86; RESP 15–23; TEMP 36.4–36.6; O2SAT 94–100; BMI 41.7
--- NOTE | ~2020-12-03 | US_ITS ---
EXAMINATION: US paracentesis abd w/image DATE: 12/05/2020 13:04 INDICATION: Ascites. TECHNIQUE: The procedure and its risks and benefits were discussed with the patient. Potential risks discussed included bleeding and infection. The skin was prepped and draped in sterile fashion. 1% lid ocaine was used for local anesthesia. Under ultrasound guidance, a 5 Fr catheter with trochar was adv anced into the ascites in the left lower quadrant. Fluid was aspirated into vacuum bottles. The harrison ter was removed, and a dressing was applied. There were no immediate complications. FINDINGS: Ultrasound images demonstrate moderate amount of ascites and the catheter within the fluid. There is body wall edema. IMPRESSION: 1. Successful ultrasound-guided paracentesis yielding 2300 mL of yellow fluid. Reviewed, dictated and finalized at location A.
--- NOTE | ~2020-12-03 | BM_ITS ---
EXAMINATION: CCL bone marrow asp w bx diag ORDER COMPLETED DATE: 12/06/2020 10:34 INDICATION: Anemia TECHNIQUE: A time-out was performed to verify the patient's name, date of , and procedure to b e performed. The procedure including the risks, benefits, and alternatives was discussed with the pat ient. Risks discussed included bleeding and infection. The patient understood the risks and agreed to proceed. The skin overlying the right posterior iliac spine was prepped and draped in usual sterile fashion. Anesthetic was administered with 1% lidocaine subcutaneously. Systemic analgesia was provide d with 100 mcg fentanyl IV. An 11 gauge needle was inserted into the ilium with fluoroscopic guidance . Bone marrow was aspirated. An 8 gauge needle was then inserted into the ilium with fluoroscopic ruma dance. A core bone marrow biopsy was obtained. There were no immediate complications. Fluoroscopy exp osure time was 0.1 minutes. The total number of images was 10. FINDINGS: Real-time fluoroscopy demonstrates a marker overlying the right posterior iliac spine. IMPRESSION: 1. Successful fluoro-guided bone marrow aspiration. 2. Successful fluoro-guided bone marrow core biopsy. Reviewed, dictated and finalized at location A.
--- NOTE | ~2020-12-03 | XR_ITS ---
EXAMINATION: XR chest 2V DATE: 12/03/2020 12:51 INDICATION: Congestive heart failure with shortness of breath TECHNIQUE: frontal and lateral views of the chest were obtained. COMPARISON: Chest radiograph dated 11/04/2020 FINDINGS: Cardiomegaly with pulmonary vascular congestion. Opacities in the bilateral lower lung zones with debra nting at costophrenic angles and posterior sulci consistent with small bilateral pleural effusions an d associated basilar atelectasis. Median sternotomy wires and mediastinal surgical clips are seen, jg maradiaga from prior coronary artery bypass grafting. IMPRESSION: 1. Cardiomegaly with pulmonary vascular congestion but without nayeli pulmonary edema. 2. Small bilateral pleural effusions with associated bibasilar atelectasis. Reviewed, dictated and finalized at location A.
--- NOTE | ~2020-12-03 | US_ITS ---
EXAMINATION: US venous doppler [facility] DATE: 12/04/2020 10:14 INDICATION: Bilateral lower limb swelling TECHNIQUE: Grayscale ultrasound images without and with compression and Doppler ultrasound images of the bilateral lower extremity veins were obtained. COMPARISON: None. FINDINGS: The visualized portions of right common femoral vein, profunda (deep) femoral vein, femoral vein, pop liteal vein, posterior tibial veins, peroneal veins, gastrocnemius vein and greater saphenous vein ou tflow are patent. Increased venous pulsatility extending into the veins of the calf. The visualized portions of left common femoral vein, profunda femoral vein, femoral vein, popliteal v ein, posterior tibial veins, peroneal veins, gastrocnemius vein and greater saphenous vein outflow ar e patent. Increased venous pulsatility extending to the veins of the calf. IMPRESSION: 1. No deep venous thrombosis in either lower limb. 2. Increased venous pulsatility extending to the veins of the calf which can be seen with tricuspid r egurgitation, right heart failure or other cause of elevated right heart pressures. Reviewed, dictated and finalized at location A. IMPRESSION: 1. No deep venous thrombosis in either lower limb. 2. Increased venous pulsatility extending to the veins of the calf which can be seen with tricuspid regurgitation, right heart failure or other cause of eleva efrem right heart pressures.
--- NOTE | 2020-12-03 11:36 | ECG_ITS ---
Measurements Intervals [place] Rate: 72 P: 57 TX: 196 QRS: 1 QRSD: 98 T: 143 QT: 431 QTc: 472 Interpretive Statements SINUS RHYTHM ATRIAL PREMATURE COMPLEX INCOMPLETE RIGHT BUNDLE BRANCH BLOCK DELAYED PRECORDIAL R/S TRANSITION ST-T WAVE ABNORMALITY IN HIGH LATERAL LEADS- CONSIDER ISCHEMIA BASELINE WANDER- V4 ABNORMAL ECG Electronically Signed On 12-03-2020 15:32:48 CDT by Tyrese Reno D.O.
[2020-12-03 12:00] LABS: Basophils Percent Auto 0.1 % (0.2-1.2); Eosinophils Absolute Auto 0.1 K/mm3 (0-0.3); Eosinophils Percent Auto 1.7 % (0-4.4); Hematocrit 24.2 % (42.0-52.0); Hemoglobin 7.3 g/dL (14.0-18.0); Immature Granulocyte Absolute 0.03 K/mm3 (0.00-0.031); Immature Granulocyte Percent A 0.4 % (0-0.5); Lymphocytes Absolute Auto 0.93 K/mm3 (0.9-3.2); Lymphocytes Percent Auto 11.4 % (18.3-44.2); Mean Corpuscular HGB Conc 30.2 g/dl (32-36); Mean Corpuscular Hemoglobin 25.5 pg (26-34); Mean Corpuscular Volume 84.6 fl (80-100); Mean Platelet Volume 9.5 fl (7.4-10.4); Monocytes Absolute Auto 0.8 K/mm3 (0.1-0.6); Monocytes Percent Auto 9.8 % (2.6-8.5); Neutrophils Absolute Auto 6.2 K/mm3 (1.3-6.7); Neutrophils Percent Auto 76.6 % (45.5-73.1); Platelet Count Result 157 k/mm3 (150-375); Red Blood Count 2.86 M/mm3 (4.6-6.20); Red Cell Distribution Width 19.3 % (11.5-14.5); White Blood Count 8.1 K/mm3 (4.5-10.0)
[2020-12-03 12:09] LABS: INR 1.1; Prothrombin Time 13.9 Seconds (11.1-14.7)
[2020-12-03 12:10] LABS: Partial Thromboplastin Time 33.7 SECONDS (22.3-36.8)
[2020-12-03 12:33] LABS: Anion Gap 9 mmol/L (8-16); Blood Urea Nitrogen 20 mg/dL (9-20); Calcium 8.9 mg/dL (8.4-10.2); Carbon Dioxide 25 mmol/L (22-30); Chloride 99 mmol/L (98-107); Estimated CRCL calculation 92 ml/min; Estimated Glomerular Filt Rate > 60; Glucose 109 mg/dL (65-110); Potassium 4.6 mmol/L (3.4-5.0); Sodium 133 mmol/L (137-145)
[2020-12-03 12:48] LABS: NT Pro B Type Natriuretic Pept 1900 pg/mL (5-100); Troponin I < 0.012 ng/mL (0.000-0.034)
[2020-12-03] MEDS: FUROSEMIDE INJ 40 MG/4 ML VIAL IV PUSH ×2 (14:33→21:08)
--- NOTE | 2020-12-03 15:09 | ED.SOB ---
HPI - SOB/Dyspnea General Chief Complaint: Shortness of Breath/Dyspnea Stated Complaint: I'M FULL OF FLUID SOB Time Seen by Provider: 12/03/20 12:45 History of Present Illness HPI Narrative: Patient is a 60-year-old male who presents ER with shortness of breath and increased edema. Discussed with triage is occurring over the last 3 days however to me he reports its been over a week. No chest pain or chest pressure. Reports compliance with his home medications but cannot tell me what he takes in or how often he takes them. He does know he is on a water pill. Patient has pulmonary hypertension as well as CHF. Recently admitted with a BNP around 1200. Patient did have a thoracentesis performed during the previous admission. Related Data Home Medications Medication Instructions Recorded Confirmed albuterol sulfate [ProAir HFA] 2 inh INHALATION BID 10/31/20 12/03/20 alprazolam [Xanax] 1 mg PO BID 10/31/20 12/03/20 atorvastatin [Lipitor] 1 mg PO DAILY 10/31/20 12/03/20 furosemide [Lasix] 40 mg PO BID 10/31/20 12/03/20 omeprazole 1 mg PO DAILY 10/31/20 12/03/20 primidone [Mysoline] 50 mg PO QHS 10/31/20 12/03/20 sertraline [Zoloft] 100 mg PO DAILY 10/31/20 12/03/20 aspirin 81 mg PO QAM 12/03/20 12/03/20 Allergies Allergy/AdvReac Type Severity Reaction Status Date / Time penicillin G Allergy Unknown Verified 12/03/20 17:48 Review of Systems Review of Systems: All systems reviewed & are unremarkable except as noted in HPI and below Constitutional: Constitutional: Denies chills, Denies fever(s) and Denies weakness ENT: Denies nasal congestion and Denies sore throat Cardiovascular: Cardiovascular: Denies chest pain and Denies radiating jaw, neck or arm pain Respiratory: Respiratory: Denies cough, Reports dyspnea and Reports wheezing Gastrointestinal: Gastrointestinal: Denies abdominal pain, Denies nausea and Denies vomiting Musculoskeletal: Musculoskeletal: Denies joint swelling and Denies muscle cramps Comments: Extremity edema increased. [facility] Past Medical History Medical History (Updated 12/04/20 @ 00:03 by Abdullahi Nguyen MD) CHF (congestive heart failure) COPD (chronic obstructive pulmonary disease) Coronary artery disease involving autologous artery coronary bypass graft KIZZY (iron deficiency anemia) Pleural effusion, right Pulmonary hypertension Family History Family History Father Congestive heart failure Heart attack Sibling Cancer Social History Social History Smoking packs per day: 0.5 Smoking cigarettes per day: 10.0 Smoking status: Current every day smoker Tobacco type: cigarettes Alcohol intake: never Substance use: current Substance use type: marijuana Gender identity (if verbalized by the patient): Male Sexual Orientation (if Verbalized by the Patient): Straight or Heterosexual Spiritual care concerns: No Exam Narrative: GENERAL: Chronically ill-appearing, obese, and in no acute distress. HEAD: Normocephalic, atraumatic. ENT: Mucous membranes moist. CHEST: Diminished right base, crackles noted bilaterally. No respiratory distress. HEART: Regular rate and rhythm. Normal peripheral pulses. ABDOMEN: Soft, nontender, nondistended. EXTREMITIES: Normal range of motion. 3+ edema. SKIN: Warm, dry, no rash. NEURO: Alert and oriented x3. PSYCH: Normal mood and affect. Course Course Emergency Course: Patient becomes hypoxic with any attempt to ambulate towards the door of his room. Admit to hospital service for diuresis. Vital Signs Vital signs: Vital Signs Temperature 97.8 F 12/03/20 11:34 Pulse Rate 79 12/03/20 11:34 Respiratory Rate 20 12/03/20 11:34 Blood Pressure 117/59 L 12/03/20 11:34 Pulse Oximetry 98 12/03/20 11:34 Temperature 97.6 F 12/03/20 22:00 Pulse Rate 75 12/03/20 22:00 Respiratory Rate 16 12/03/20 22:00 Blood
--- NOTE | 2020-12-03 16:11 | PM.IMHP ---
H&P: HPI History of Present Illness Date/Time: 12/03/20 16:11 He is a 60-year-old male with past medical history of COPD, CHF CAD status post bypass, Liver cirrhosis secondary to alcohol abuse,history of iron deficiency anemia, history of pulmonary hypertension, morbid obesity who came into the ED with complaints of weight gain, bilateral lower extremity swelling and shortness of breath. His symptoms started 3-5 days ago with worsening shortness of breath. He has gained about 60 lb in last 3 weeks. He was also complaining of bilateral lower extremity swelling and abdominal distention/bloating. He denied have any chest pain. He does have orthopnea and paroxysmal nocturnal dyspnea. He is also complaining of some cough which is mostly dry with some occasional whitish phlegm. He is having wheezes but denied have any chest tightness. He denied have any fever chills nausea vomiting diarrhea or abdominal pain. There is concern about him being noncompliant to his medication and other medical recommendations. He is not on home oxygen. He uses albuterol MDI and Anoro Ellipta. He still smoking 1-2 cigarettes a day and use to smoke half pack per day since the age of 16-year-old. he was recently admitted here and was discharged on 11/04. he was diuresed with Lasix due to acute on chronic congestive heart failure exacerbation. He also had thoracentesis because of pleural effusion on the right side. Fluid analysis was exudative in nature but cytology and cultures remain negative. He was discharged home on home oxygen with 2 L through nasal cannula but he has reported to me that he is not on home oxygen. Chief Complaint: shortness of breath Review of Systems Review of Systems: A comprehensive review of systems has been reviewed with the patient and most of the symptoms are negative except the one's mentioned above in HPI. [facility] Past Medical History Medical History (Updated 12/03/20 @ 16:19 by James Coyle MD) CHF (congestive heart failure) COPD (chronic obstructive pulmonary disease) Coronary artery disease involving autologous artery coronary bypass graft KIZZY (iron deficiency anemia) Pleural effusion, right Pulmonary hypertension Family History Family History (Updated 10/31/20 @ 23:10 by Aicha Mendoza RN) Father Congestive heart failure Social History Social History Smoking packs per day: 0.5 Smoking cigarettes per day: 10.0 Smoking status: Current every day smoker Tobacco type: cigarettes Alcohol intake: never Substance use: never Gender identity (if verbalized by the patient): Male Spiritual care concerns: No Meds Home Medications and Allergies Home Medications Medication Instructions Recorded Confirmed Type albuterol sulfate [ProAir HFA] 2 inh INHALATION BID 10/31/20 10/31/20 History alprazolam [Xanax] 1 mg PO BID 10/31/20 10/31/20 History atorvastatin [Lipitor] 1 mg PO DAILY 10/31/20 10/31/20 History furosemide [Lasix] 40 mg PO BID 10/31/20 10/31/20 History omeprazole 1 mg PO DAILY 10/31/20 10/31/20 History primidone [Mysoline] 50 mg PO QHS 10/31/20 10/31/20 History sertraline [Zoloft] 100 mg PO DAILY 10/31/20 10/31/20 History aspirin 81 mg PO QAM #30 tablet 11/04/20 Rx ferrous sulfate 325 mg PO DAILY #30 tablet 11/04/20 Rx metoprolol succinate 12.5 mg PO DAILY #30 ea 11/04/20 Rx potassium chloride 10 meq PO BID #30 ea 11/04/20 Rx umeclidinium-vilanterol [Anoro 1 ea INHALATION DAILYRT #60 ea 11/04/20 Rx Ellipta] Allergies Allergy/AdvReac Type Severity Reaction Status Date / Time penicillin G Allergy Unknown Verified 12/03/20 12:44 Vital Signs Vital Signs - 24 hr 12/03/20 11:34 12/03/20 12:42 12/03/20 14:35 Temperature 36.6 C Pulse Rate 79 72 72 Respiratory Rate 20 16 Blood Pressure 117/59 L 116/62 Pulse Oximetry 98 100 97 Exam Narrative: General awake and alert not in acute distress Eyes EVA corey
[2020-12-03] MEDS: DOCUSATE SODIUM 100 MG CAPSULE PO (17:23)
--- NOTE | 2020-12-03 17:31 | ADMGEN ---
This patient, Faisal Suazo, was admitted to [facility] Surg Room 328-01. Patient/family oriented to hospital policies and general routines including ID bracelet, bed and alarms, visiting hours, pain management, procedures, bathroom and other care routines, personal items, smoking policy, room service/diet, and visiting hours. Information on how to activate the Rapid Response Team has been discussed. Patient/Family are encouraged to report perceived risks to care and to ask questions if they do not understand what they are told or what they should do.
[2020-12-03 19:05] LABS: Troponin I < 0.012 ng/mL (0.000-0.034)
[2020-12-03] MEDS: methylPREDNISolone SOD SUCC 40 MG VIAL IV PUSH (21:07)
[2020-12-03] MEDS: ALBUTEROL SULFATE NEB 2.5 MG/0.5 ML INH INHALATION (21:34)
[2020-12-04] VITALS (15 sets, daily range): BP systolic 115–144; BP diastolic 59–92; PULSE 69–90; RESP 14–20; TEMP 36.1–36.9; O2SAT 93–94
[2020-12-04] MEDS: ALBUTEROL SULFATE NEB 2.5 MG/0.5 ML INH INHALATION ×3 (02:55→14:24)
[2020-12-04] MEDS: methylPREDNISolone SOD SUCC 40 MG VIAL IV PUSH ×2 (05:41→21:55)
[2020-12-04 06:10] LABS: Eosinophils Percent Auto 0.1 % (0-4.4); Hemoglobin 7.9 g/dL (14.0-18.0); Immature Granulocyte Absolute 0.03 K/mm3 (0.00-0.031); Immature Granulocyte Percent A 0.4 % (0-0.5); Lymphocytes Absolute Auto 0.78 K/mm3 (0.9-3.2); Lymphocytes Percent Auto 10.5 % (18.3-44.2); Mean Corpuscular HGB Conc 29.3 g/dl (32-36); Mean Corpuscular Hemoglobin 25.6 pg (26-34); Mean Corpuscular Volume 87.4 fl (80-100); Mean Platelet Volume 10.1 fl (7.4-10.4); Monocytes Absolute Auto 0.5 K/mm3 (0.1-0.6); Monocytes Percent Auto 6.6 % (2.6-8.5); Neutrophils Absolute Auto 6.1 K/mm3 (1.3-6.7); Neutrophils Percent Auto 82.4 % (45.5-73.1); Platelet Count Result 203 k/mm3 (150-375); Red Blood Count 3.09 M/mm3 (4.6-6.20); Red Cell Distribution Width 19.3 % (11.5-14.5); White Blood Count 7.4 K/mm3 (4.5-10.0)
[2020-12-04 06:21] LABS: Anion Gap 11 mmol/L (8-16); Blood Urea Nitrogen 22 mg/dL (9-20); Calcium 9.1 mg/dL (8.4-10.2); Carbon Dioxide 24 mmol/L (22-30); Chloride 99 mmol/L (98-107); Estimated CRCL calculation 84 ml/min; Estimated Glomerular Filt Rate > 60; Glucose 115 mg/dL (65-110); Potassium 4.9 mmol/L (3.4-5.0); Sodium 134 mmol/L (137-145)
[2020-12-04 06:54] LABS: Anisocytosis 1+ (NORMAL); Hypochromasia 1+ (NORMAL); Ovalocytes 1+ (NORMAL); Platelet Estimate Adequate (Adequate); Poikilocytosis 1+ (NORMAL)
[2020-12-04] MEDS: FUROSEMIDE INJ 40 MG/4 ML VIAL IV PUSH (07:51)
[2020-12-04] MEDS: ENOXAPARIN 40 MG/0.4 ML SYRINGE SUB-Q (07:51)
[2020-12-04] MEDS: DOCUSATE SODIUM 100 MG CAPSULE PO ×2 (07:51→17:47)
--- NOTE | 2020-12-04 13:02 | PM.CNCAR ---
Assessment and Plan Additional Plan this is a 60-year-old man who is known to have coronary artery disease has had both percutaneous and surgical revascularization in the past and has not had any ischemic issues of significance in a number of years. He is known to have normal left ventricular systolic function and no significant valvular disease by evaluation here last month as well as by his established service desk lead in [place]. He is repeatedly admitted now with shortness of breath some pleural effusions as well as some peripheral edema. Because he has a significant anemia it would be my impression that we are seeing high output congestive heart failure here which we will treat with diuretics and beta-blockers as has been the last time he was here however it is obviously important that a workup of this man's anemia be undertaken so as to more effectively treat this. We will follow him with you while he is at [facility]. I do not think he needs any repeated coronary or cardiac workup here at this hospital at this time. After discharge he plans to follow-up with his longstanding physicians in [place]. When he is having these sorts of problems it would be more appropriate for him to be hospitalized for his physician's practice Pernell Fischer MD [facility] History of Present Illness History of Present Illness Consult date/time: 12/04/20 13:02 Consult reason: shortness of breath Reason For Visit: CHF Exacerbation Narrative: This is a 60-year-old man I am seeing at the request of the hospitalist because of dyspnea and evidence of a recurrence of decompensated congestive heart failure. I have never seen this man previously although he has a long history of cardiac disease and receives his care elsewhere. The patient came to the emergency room in [place] with shortness of breath and increasing lower extremity edema for at least several days. He was also found to have pleural effusions which are are recurring from recent admission here about a month ago. the patient is responsive and answers questions appropriately but I do not believe the history is entirely reliable. According to the patient he has a long history of coronary artery disease and has a service desk lead who sees him in office over at [place]. He reports that it is a couple of decades ago he was found to have coronary disease and was referred for a coronary bypass operation which was done at [facility]. He thinks about 10 years after his coronary bypass he had a percutaneous intervention done with stenting he have no idea whether this was [place] artery procedure or graft procedure. In any event he states that since then in recent years his service desk lead as told him that he is happy about the condition of his heart and that he has been quite stable. He came into this hospital about a month ago despite the fact that he receives done of his medical care here and was short of breath and found to have volume overloaded some pleural effusions. He was treated with diuretics and improved. He had a thoracentesis done of his right pleural effusion which he will did findings consistent with a mildly exudative effusion process. He was also found to be significantly anemic. Apparently he has a history of a ongoing normocytic anemia that was somewhat worked up in [place] during a previous evaluation. The chart indicates he had a negative GI workup and was referred to Hematology with Dr. Velazquez the last time he was here. I do not have any information if any further workup of the anemia has been done currently is hemoglobin is in the [facility] of 7 g. He does not report any chest pain orthopnea or PND. The patient indicates that he is also dealing with a psychiatric disorder he has a chronic post-traumatic stress disorder and has a psychiatrist that sees him in [place]. Echocardiogram done the last time he was here last month demonstrated normal looking left ventricular
--- NOTE | 2020-12-04 13:19 | PM.IMPN ---
Progress Note: A&P Assessment and Plan (1) Chronic respiratory failure: Code(s): J96.10 - Chronic respiratory failure, unspecified whether with hypoxia or hypercapnia Status: Acute Assessment and Plan: He was discharged home recently on 2 L of oxygen but it seemed that he has not been using it. Keep oxygen to keep his oxygen saturation above 90%. Wean oxygen if tolerated. Ambulatory oximetry study before discharge for reassessment of his oxygen needs. (2) Acute on chronic diastolic CHF (congestive heart failure): Code(s): I50.33 - Acute on chronic diastolic (congestive) heart failure Status: Acute Assessment and Plan: Continue aggressive diuresis with Lasix. I will increase the dose of Lasix to 80 mg IV twice a day as he had minimal output with his current dose of Lasix 40 mg twice a day. I will add Aldactone.He seems to be noncompliant to his medication regimen. Strict intake output record. Continue to monitor renal parameters and electrolytes. Place Chacko's if strict intake output record cannot be documented. Cardiology Service inputs appreciated. No plans for any workup at this time He had a recent echocardiogram in October 2020 which showed ejection fraction of 60-65%, mild RV systolic dysfunction, estimated pulmonary artery pressure of 45-50. (3) COPD exacerbation: Code(s): J44.1 - Chronic obstructive pulmonary disease with (acute) exacerbation Status: Acute Assessment and Plan: He does have wheezes bilaterally which may be related to his fluid overload status. IV steroid with Solu-Medrol for 3-5 days. He is less wheezy today and will change Solu-Medrol to twice a day. He can be quickly tapered off steroid in the next 2-3 days if he continued to do well. continue bronchodilator with DuoNebs. Continue Anoro Ellipta and albuterol MDI during hospitalization. (4) Pulmonary hypertension: Code(s): I27.20 - Pulmonary hypertension, unspecified Status: Acute Assessment and Plan: Likely secondary to group 2 and group 3 etiologies. Hepatopulmonary syndrome with pulmonary hypertension can be other etiology. Outpatient follow-up with Pulmonary was reiterated. (5) Bilateral pleural effusion: Code(s): J90 - Pleural effusion, not elsewhere classified Status: Acute Assessment and Plan: Continue aggressive diuresis With Lasix and will add Aldactone.. Repeat chest x-ray in 2-3 days time. If he continued to have significant pleural effusion then thoracentesis can be attempted. He recently had a right-sided thoracentesis with fluid analysis being exudative but he was on diuretics at the time. Cytology and cultures remain negative. (6) KIZZY (iron deficiency anemia): Code(s): D50.9 - Iron deficiency anemia, unspecified Status: Acute Assessment and Plan: He had recent workup for anemia by his primary care doctor. He also had an admission for workup for his anemia his hemoglobin was noted to be down to 6.2 on 10/06/2020 with ferritin level of 12 and increased iron binding capacity suggestive of iron deficiency anemia. He had underwent GI workup in September at [facility] with upper endoscopy and colonoscopy which is reported to be unremarkable however they actually reports is not available for me to review. He also had required blood transfusions earlier past month. He had follow-up appointment with Hematology-Oncology for evaluation in mid November Where he had some blood work drawn. He was told that he need to have bone marrow biopsy. He was also told that he may need IV iron infusion. I will put in a consult for Hematology-Oncology to see if they would want to do bone marrow biopsy now as an inpatient. He may be started on IV iron once bone marrow biopsy is done. His stool guaiac was negative during his recent admission. He was offered GI evaluation during the last visit b
[2020-12-04 16:30] LABS: Magnesium 2.1 mg/dL (1.6-2.3)
[2020-12-04] MEDS: FUROSEMIDE INJ 100 MG/10 ML VIAL 80 MG IV PUSH (18:14)
[2020-12-04] MEDS: HYDROcodone/acetaminophen (*CRX) 5-325 MG TABLET 1 TAB PO (18:17)
--- NOTE | 2020-12-04 23:49 | PCRCNOTE ---
Window of time for administration has passed. See next scheduled administration.
[2020-12-05] VITALS (16 sets, daily range): BP systolic 101–123; BP diastolic 55–59; PULSE 72–92; RESP 16–20; TEMP 35.9–36.6; O2SAT 93–97
[2020-12-05] MEDS: ALBUTEROL SULFATE NEB 2.5 MG/0.5 ML INH INHALATION ×4 (02:49→20:51)
[2020-12-05] MEDS: FUROSEMIDE INJ 100 MG/10 ML VIAL 80 MG IV PUSH ×2 (05:45→17:06)
[2020-12-05] MEDS: METOPROLOL SUCCINATE EXT REL 25 MG TABCR PO (08:22)
[2020-12-05] MEDS: methylPREDNISolone SOD SUCC 40 MG VIAL IV PUSH ×2 (08:26→20:38)
[2020-12-05] MEDS: SPIRONOLACTONE 50 MG TABLET PO (08:26)
[2020-12-05 10:24] LABS: Hematocrit 25.7 % (42.0-52.0); Hemoglobin 7.7 g/dL (14.0-18.0); Immature Granulocyte Absolute 0.02 K/mm3 (0.00-0.031); Immature Granulocyte Percent A 0.3 % (0-0.5); Lymphocytes Absolute Auto 0.89 K/mm3 (0.9-3.2); Lymphocytes Percent Auto 13.8 % (18.3-44.2); Mean Corpuscular Hemoglobin 25.8 pg (26-34); Monocytes Absolute Auto 0.6 K/mm3 (0.1-0.6); Monocytes Percent Auto 8.7 % (2.6-8.5); Neutrophils Percent Auto 77.2 % (45.5-73.1); Platelet Count Result 171 k/mm3 (150-375); Red Blood Count 2.99 M/mm3 (4.6-6.20); Red Cell Distribution Width 19.1 % (11.5-14.5); White Blood Count 6.5 K/mm3 (4.5-10.0)
[2020-12-05 10:43] LABS: Alanine Aminotransferase 26 U/L (4-50); Alkaline Phosphatase 148 U/L (38-126); Anion Gap 8 mmol/L (8-16); Aspartate Amino Transferase 37 U/L (17-59); Bilirubin,Total 1.6 mg/dL (0.2-1.3); Blood Urea Nitrogen 26 mg/dL (9-20); Calcium 9.2 mg/dL (8.4-10.2); Carbon Dioxide 26 mmol/L (22-30); Chloride 98 mmol/L (98-107); Estimated CRCL calculation 78 ml/min; Estimated Glomerular Filt Rate 57; Glucose 111 mg/dL (65-110); Magnesium 2.1 mg/dL (1.6-2.3); Potassium 4.4 mmol/L (3.4-5.0); Sodium 132 mmol/L (137-145)
--- NOTE | 2020-12-05 13:03 | PM.IMPN ---
Progress Note: A&P Assessment and Plan (1) Cirrhosis of liver: Code(s): K74.60 - Unspecified cirrhosis of liver Status: Acute Assessment and Plan: - patient has ascites, plan for paracentesis today -Likely will need recurrent paracentesis in the future with his decompensated cirrhosis - Aldactone has been added this admission (2) Acute exacerbation of CHF (congestive heart failure): Code(s): I50.9 - Heart failure, unspecified Status: Acute Assessment and Plan: - continue Lasix, peripheral edema and heart failure - echocardiogram 10/2019: EF 60-65%, mild RV systolic dysfunction - will transition to p.o. Lasix on discharge - patient has 2 L home oxygen therapy ordered (3) Bilateral pleural effusion: Code(s): J90 - Pleural effusion, not elsewhere classified Status: Acute Assessment and Plan: - likely from fluid overload from cirrhosis in her failure (4) COPD exacerbation: Code(s): J44.1 - Chronic obstructive pulmonary disease with (acute) exacerbation Status: Acute Assessment and Plan: - continue steroids, may be cardiac wheezing, however he does have a history of obstructive disease (5) Acute on chronic diastolic CHF (congestive heart failure): Code(s): I50.33 - Acute on chronic diastolic (congestive) heart failure Status: Acute Assessment and Plan: - continue diuresis Lasix. he is breathing comfortably on room air (6) Coronary artery disease involving autologous artery coronary bypass graft: Code(s): I25.810 - Atherosclerosis of coronary artery bypass graft(s) without angina pectoris Status: Acute (7) Pulmonary hypertension: Code(s): I27.20 - Pulmonary hypertension, unspecified Status: Acute Assessment and Plan: - pulmonary pressure 45-50 (8) KIZZY (iron deficiency anemia): Code(s): D50.9 - Iron deficiency anemia, unspecified Status: Acute Assessment and Plan: - iron deficiency anemia, patient was to have a bone marrow biopsy - hemoglobin stable 7.7 Additional Plan - code status full code - disposition home, will re-evaluate after paracentesis Time Spent With Patient Time with patient: 15 - 25 minutes Subjective Date/time seen: 12/05/20 13:03. patient examined he feels well today. He thinks he has biggest in abdominal size that he has ever been. Plan for paracentesis today. he still has some wheezing and is on Lasix and steroids. we discussed possibly having frequent outpatient paracentesis as his ascitic fluid recollects. patient will need to be on steroid taper as well as a Lasix regimen for heart failure. Will see above discharge after paracentesis. he denies fever, chills, nausea, vomiting, diarrhea, chest pain, abdominal pain. Review of Systems Review of Systems: All systems reviewed & are unremarkable except as noted in HPI and below Exam Narrative: - GENERAL: No acute distress. Appears stated age - EYES: EOMI. Anicteric. - HENT: Moist mucous membranes. - LUNGS: expiratory wheeze, coarse lung sounds throughout, rhonchi. - CARDIOVASCULAR: Regular rate and rhythm. No murmur. - ABDOMEN: Soft, non-tender, Distended with stretch [place], large abdominal girth. Pitting edema lower part of abdomen with associated erythema. - EXTREMITIES: 3+ pitting edema bilaterally to knees - NEUROLOGIC: No focal neurological deficits. CN II-XII grossly intact. - PSYCHIATRIC: Awake, Alert and oriented x 3. Appropriate mood and affect. - SKIN: No rashes or lesions. Warm. - LYMPH: No cervical lymphadenopathy. Objective Data Vital Signs Vital Signs: Vital Signs - 24 hr 12/04/20 14:00 12/04/20 14:24 12/04/20 14:31 Temperature 36.9 C Pulse Rate 88 88 85 Respiratory Rate 16 16 16 Blood Pressure 144/69 H Pulse Oximetry 93 12/04/20 16:00 12/04/20 22:00 12/05/20 02:49 Temperature 36.4 C L Pulse Rate 80 88 84 Respiratory Rate 20 16 Blood Pressure 1
[2020-12-05] MEDS: LACTULOSE 20 GM/30 ML UDC PO (13:17)
[2020-12-05] MEDS: DOCUSATE SODIUM 100 MG CAPSULE PO ×2 (13:17→17:07)
[2020-12-05] MEDS: ALPRAZolam (*CRX) 0.5 MG TABLET 1 MG PO (15:26)
[2020-12-05] MEDS: PRIMIDONE 50 MG TABLET PO (20:38)
[2020-12-06] VITALS (17 sets, daily range): BP systolic 105–145; BP diastolic 55–83; PULSE 71–97; RESP 12–24; TEMP 36.2–36.6; O2SAT 91–98
[2020-12-06] MEDS: ALBUTEROL SULFATE NEB 2.5 MG/0.5 ML INH INHALATION ×3 (02:56→14:33)
[2020-12-06] MEDS: FUROSEMIDE INJ 100 MG/10 ML VIAL 80 MG IV PUSH (06:38)
--- NOTE | 2020-12-06 08:53 | PC.NURSE ---
Spoke with lab rn. They stated patient may have all morning meds with a sip of water except lovenox and aspirin. They will do procedure around 0930.
[2020-12-06] MEDS: ATORVASTATIN 20 MG TABLET PO (08:57)
[2020-12-06] MEDS: SPIRONOLACTONE 50 MG TABLET PO (08:57)
[2020-12-06] MEDS: PANTOPRAZOLE 40 MG TABLET PO (08:57)
[2020-12-06] MEDS: FERROUS SULFATE 324 MG TABLET PO (08:57)
[2020-12-06] MEDS: SERTRALINE HCL 50 MG TABLET 100 MG PO (08:57)
[2020-12-06] MEDS: DOCUSATE SODIUM 100 MG CAPSULE PO (08:57)
[2020-12-06] MEDS: LACTULOSE 20 GM/30 ML UDC PO (08:58)
[2020-12-06] MEDS: METOPROLOL SUCCINATE EXT REL 25 MG TABCR PO (08:58)
[2020-12-06] MEDS: methylPREDNISolone SOD SUCC 40 MG VIAL IV PUSH (08:58)
--- NOTE | 2020-12-06 10:03 | WPDMODSED ---
Moderate Sedation Note-Pt Data Patient Data Allergies Allergy/AdvReac Type Severity Reaction Status Date / Time penicillin G Allergy Unknown Verified 12/03/20 17:48 Home Medications Medication Instructions Recorded Confirmed Type albuterol sulfate [ProAir HFA] 2 inh INHALATION BID 10/31/20 12/03/20 History alprazolam [Xanax] 1 mg PO BID 10/31/20 12/03/20 History atorvastatin [Lipitor] 1 mg PO DAILY 10/31/20 12/03/20 History furosemide [Lasix] 40 mg PO BID 10/31/20 12/03/20 History omeprazole 1 mg PO DAILY 10/31/20 12/03/20 History primidone [Mysoline] 50 mg PO QHS 10/31/20 12/03/20 History sertraline [Zoloft] 100 mg PO DAILY 10/31/20 12/03/20 History ferrous sulfate 325 mg PO DAILY #30 tablet 11/04/20 12/03/20 Rx metoprolol succinate 12.5 mg PO DAILY #30 ea 11/04/20 12/03/20 Rx potassium chloride 10 meq PO BID #30 ea 11/04/20 12/03/20 Rx umeclidinium-vilanterol [Anoro 1 ea INHALATION DAILYRT #60 ea 11/04/20 12/03/20 Rx Ellipta] aspirin 81 mg PO QAM 12/03/20 12/03/20 History Current Medications: Active Medications Acetaminophen (Acetaminophen 325 Mg Tablet) 650 mg PO Q6HR PRN PRN Reason: Mild Pain (1-3) or Fever Hydrocodone Bitart/Acetaminophen (Hydrocodone/Acetaminophen (*Crx) 5-325 Mg Tablet) 1 tab PO Q6HR PRN PRN Reason: Pain Rated 4-6 Last Admin: 12/04/20 18:17 Dose: 1 tab Documented by: Al Hydrox/Mg Hydrox/Simethicone (Mag Hydrox/Al Hydrox/Simeth 30 Ml Udc) 30 ml PO QID PRN PRN Reason: Dyspepsia Albuterol (Albuterol Sulfate Neb 2.5 Mg/0.5 Ml Inh) 2.5 mg INHALATION Q6HRT PRN PRN Reason: Shortness Of Breath Albuterol (Albuterol Sulfate Neb 2.5 Mg/0.5 Ml Inh) 2.5 mg INHALATION Q6HRT JOSE Last Admin: 12/06/20 08:20 Dose: 2.5 mg Documented by: Alprazolam (Alprazolam (*Crx) 0.5 Mg Tablet) 1 mg PO BID PRN PRN Reason: Anxiety Last Admin: 12/05/20 15:26 Dose: 1 mg Documented by: Aspirin (Aspirin 81 Mg Enteric Tablet) 81 mg PO [facility] Atorvastatin Calcium (Atorvastatin 20 Mg Tablet) 20 mg PO DAILY [facility] Last Admin: 12/06/20 08:57 Dose: 20 mg Documented by: Docusate Sodium (Docusate Sodium 100 Mg Capsule) 100 mg PO BID [facility] Last Admin: 12/06/20 08:57 Dose: 100 mg Documented by: Enoxaparin Sodium (Enoxaparin 40 Mg/0.4 Ml Syringe) 40 mg SUB-Q DAILY [facility] Last Admin: 12/04/20 07:51 Dose: 40 mg Documented by: Ferrous Sulfate (Ferrous Sulfate 324 Mg Tablet) 324 mg PO DAILY [facility] Last Admin: 12/06/20 08:57 Dose: 324 mg Documented by: Furosemide (Furosemide Inj 100 Mg/10 Ml Vial) 80 mg IV PUSH Q12H [facility] Last Admin: 12/06/20 06:38 Dose: 80 mg Documented by: Lactulose (Lactulose 20 Gm/30 Ml Udc) 20 gm PO [facility] Last Admin: 12/06/20 08:58 Dose: 20 gm Documented by: Methylprednisolone Sodium Succinate (Methylprednisolone Sod Succ 40 Mg Vial) 40 mg IV PUSH Q12HR [facility] Last Admin: 12/06/20 08:58 Dose: 40 mg Documented by: Metoprolol Succinate (Metoprolol Succinate Ext Rel 25 Mg Tabcr) 25 mg PO [facility] Last Admin: 12/06/20 08:58 Dose: 25 mg Documented by: Naloxone HCl (Naloxone Hcl 0.4 Mg/Ml Vial) 0.1 mg IV PUSH Q2M PRN PRN Reason: Opiate Reversal Neomycin/Polymyxin/Bacitracin (Neomycin/Polymyxin/Bacitracin Ointment 15 Gm Tube) 1 applic TOPICAL PRN PRN PRN Reason: with dressing changes Ondansetron HCl (Ondansetron Inj 4 Mg/2 Ml Vial) 4 mg IV PUSH Q6HR PRN PRN Reason: Nausea Pantoprazole Sodium (Pantoprazole 40 Mg Tablet) 40 mg PO [facility] Last Admin: 12/06/20 08:57 Dose: 40 mg Documented by: Primidone (Primidone 50 Mg Tablet) 50 mg PO HS [facility] Last Admin: 12/05/20 20:38 Dose: 50 mg Documented by: Sertraline HCl (Sertraline Hcl 50 Mg Tablet) 100 mg PO DAILY [facility] Last Admin: 12/06/20 08:57 Dose: 100 mg Documented by: Spironolactone (Spironolactone 50 Mg Tablet) [facility] Last Admin: 12/06/20 08:57 Dose: 50 mg Documented by: Umeclidinium/Vilanterol (Umeclidinium/Vilanterol 62.5-25 Mcg Ellipta) [facility] Sedation/Anesthesia: No previous sed
--- NOTE | 2020-12-06 12:47 | PDONCCN ---
HPI - Date of Consult Date/Time: 12/06/20 12:47 Requesting Physician: James Coyle MD Primary Care Provider: Russ De La Vega, - Consult Narrative Reason for consult: Anemia Narrative: Faisal Suazo is a 60 year old male with history of congestive heart failure, liver cirrhosis, COPD and coronary artery disease status post bypass along with morbid obesity. Patient was seen in the office recently for anemia. He was having significant lower extremity edema and abdominal swelling with ascites. I at that time recommended admission to the hospital. Patient decided to go home with Lasix. He came into the ER with worsening bilateral lower extremity edema and shortness of breath. Labs showed hemoglobin of 7.9. Creatinine was 1.2. Patient had paracentesis done with 23 mL yellow fluid removed on December 03. He also had bone marrow biopsy done for workup of anemia. He is feeling much better after the diuresis and paracentesis. Review of Systems - Review of Systems All systems reviewed & are unremarkable except as noted in HPI and bel - Neurologic Reports weakness [facility] Medical History: Medical History (Last Reviewed 12/06/20 @ 10:04 by Dimitrios Palacio MD) CHF (congestive heart failure) COPD (chronic obstructive pulmonary disease) Coronary artery disease involving autologous artery coronary bypass graft KIZZY (iron deficiency anemia) Pleural effusion, right Pulmonary hypertension Family History: Family History (Last Reviewed 12/06/20 @ 10:04 by Dimitrios Palacio MD) Father Congestive heart failure Heart attack Sibling Cancer - Social History Social History: Social History (Last Reviewed 12/06/20 @ 10:04 by Dimitrios Palacio MD) Gender Identity: Gender identity (if verbalized by the patient): Male Alcohol Use: Alcohol intake: never Substance Use: Substance use: current Substance use type: marijuana Others: Spiritual care concerns: No Smoking Status: Smoking status: Current every day smoker Tobacco type: cigarettes Smoking Pack-years: Smoking packs per day: 0.5 Smoking cigarettes per day: 2 Meds Home Medications Medication Instructions Recorded Confirmed Type albuterol sulfate [ProAir HFA] 2 inh INHALATION BID 10/31/20 12/03/20 History alprazolam [Xanax] 1 mg PO BID 10/31/20 12/03/20 History atorvastatin [Lipitor] 1 mg PO DAILY 10/31/20 12/03/20 History furosemide [Lasix] 40 mg PO BID 10/31/20 12/03/20 History omeprazole 1 mg PO DAILY 10/31/20 12/03/20 History primidone [Mysoline] 50 mg PO QHS 10/31/20 12/03/20 History sertraline [Zoloft] 100 mg PO DAILY 10/31/20 12/03/20 History ferrous sulfate 325 mg PO DAILY #30 tablet 11/04/20 12/03/20 Rx metoprolol succinate 12.5 mg PO DAILY #30 ea 11/04/20 12/03/20 Rx potassium chloride 10 meq PO BID #30 ea 11/04/20 12/03/20 Rx umeclidinium-vilanterol [Anoro 1 ea INHALATION DAILYRT #60 ea 11/04/20 12/03/20 Rx Ellipta] aspirin 81 mg PO QAM 12/03/20 12/03/20 History Allergies Allergy/AdvReac Type Severity Reaction Status Date / Time penicillin G Allergy Unknown Verified 12/03/20 17:48 Results - Labs CBC & Chem 7: 12/05/20 09:37 12/05/20 09:37 Assessment and Plan - Additional Plan Normocytic anemia. Patient is a 60-year-old morbidly obese male with history of liver cirrhosis, congestive heart failure and coronary artery disease as well as sleep apnea. Previous workup for anemia came back unremarkable for iron deficiency and vitamin B12 deficiency. Kidney function normal. Plan was to perform bone marrow biopsy as a workup for anemia. But her biopsy has been performed and results are pending. Patient is ready to be discharged home and will follow-up with us in the office. Liver cirrhosis. Patient had paracentesis done with removal of 40 IIIc 100 cc of fluid. Patient was given appointment to see Dr. Martinez Nweman for further workup of liver cirrhosis and managem
--- NOTE | 2020-12-06 16:00 | PM.DS ---
DS: Admitting Diagnosis Admitting Diagnosis Decompensated cirrhosis, fluid overload, acute hypoxic respiratory DS: Discharge Diagnosis Discharge Diagnosis (1) Cirrhosis of liver: Code(s): K74.60 - Unspecified cirrhosis of liver Status: Acute Assessment and Plan: - likely decompensated cirrhosis causing fluid overload - he is status post paracentesis on 12/05/2020 with 2.3 L of yellow fluid - has been diuresing with Lasix 80 mg IV b.i.d. which is more than his dose of 40 p.o. b.i.d. he will be discharged with 80 p.o. b.i.d. follow PCP daily weights (2) Bilateral pleural effusion: Code(s): J90 - Pleural effusion, not elsewhere classified Status: Acute Assessment and Plan: fluid overload (3) Acute on chronic diastolic CHF (congestive heart failure): Code(s): I50.33 - Acute on chronic diastolic (congestive) heart failure Status: Acute Assessment and Plan: exacerbation improved with diuresis. He has been weaned off and oxygen (4) COPD (chronic obstructive pulmonary disease): Code(s): J44.9 - Chronic obstructive pulmonary disease, unspecified Status: Acute Assessment and Plan: questionable COPD exacerbation however it appears symptoms more or line with CHF as opposed to COPD. will not prescribe steroid (5) Coronary artery disease involving autologous artery coronary bypass graft: Code(s): I25.810 - Atherosclerosis of coronary artery bypass graft(s) without angina pectoris Status: Acute Assessment and Plan: longstanding history DS: Summary Hospital Course Reason for hospitalization: dyspnea fluid overload, anemia Hospital Course: patient is a 60-year-old male past medical history of COPD, CHF, CAD status post CABG, liver cirrhosis secondary to alcohol abuse, history of iron deficiency anemia, pulmonary hypertension history, morbid obesity presents to the ED with complaints of weight gain and bilateral extremity swelling and shortness of breath. His symptoms improved with IV diuresis Lasix 80 mg IV b.i.d.. Cardiology was consulted believes his dyspnea is more likely related to his anemia. patient's history of anemia was attributed to iron deficiency. Hematology-Oncology was consulted who performed bone marrow biopsy on 12/06/2020. for his anemia he has had GI workup in the past at [facility] in September 2020. He will be discharged with his previous iron supplementation, and he will follow-up with Heme-Onc for the bone marrow biopsy results. He will follow-up with GI Dr. Henriquez for the alcoholic cirrhosis management. He understands that the fluid may reaccumulate in the future and may require further paracentesis is which can be done in outpatient setting. I will be discharging patient with metoprolol 25 mg which he was tolerating well and higher dose of the Lasix 80 mg p.o. b.i.d.. Patient has been advised to keep track of his weight with daily measurements. he will follow-up PCP for close management of diuretics. patient's labs stable, vitals stable, patient is stable for discharge. Patient understands and agrees with plan. Status at Discharge Functional status at discharge: independent ambulation Overall status at discharge: patient is back to baseline Time Spent with Patient Time attestation: Total time spent providing and/or coordinating discharge services:35 Time spent: Greater than 30 minutes Exam Narrative: - GENERAL: Pleasant male in no acute distress sitting comfortably in bed - EYES: EOMI. Anicteric. - HENT: Moist mucous membranes. - LUNGS: minor expiratory wheeze, coarse lung sounds throughout, breathing comfortably on room air - CARDIOVASCULAR: Regular rate and rhythm. No murmur. - ABDOMEN: Soft, non-tender. distended abdomen with stretch [place], obese. No palpable masses. - EXTREMITIES: 2+ pitting edema bilaterally to knees. Peripheral pulses 2+. Non-tender. - NEUROLOGIC: No focal neurological deficits. CN II-XII abram
[2020-12-06] MEDS: ALPRAZolam (*CRX) 0.5 MG TABLET 1 MG PO (16:48)
--- NOTE | 2020-12-06 17:04 | PM.PNCARD ---
Progress Note: A&P Assessment and Plan (1) Coronary artery disease involving autologous artery coronary bypass graft: Code(s): I25.810 - Atherosclerosis of coronary artery bypass graft(s) without angina pectoris Status: Acute Assessment and Plan: Continue medical therapy statin, aspirin, Toprol XL. No acute issues at this time. Follow-up with primary certified legal investigator as an outpatient within 1-2 weeks. (2) Acute on chronic diastolic CHF (congestive heart failure): Code(s): I50.33 - Acute on chronic diastolic (congestive) heart failure Status: Acute Assessment and Plan: Improved but remains volume overloaded high output heart failure. Patient has still been receiving IV Lasix 80 mg q.12 hours. Discussed with patient preference to transition to oral regimen and observe response prior to discharge. Patient states he wants to be discharged home. He is aware of these risks and accepts them. Recommend change it Lasix 80 mg p.o. b.i.d. and follow up with his certified legal investigator Dr. Rodriguez in 1 week. BMP And magnesium not obtained today. I see patient has been set for discharge by the primary service. While this is not ideal patient appears stable at this time. He should have a BMP as an outpatient within 1 week. Disposition per hospitalist service. (3) KIZZY (iron deficiency anemia): Code(s): D50.9 - Iron deficiency anemia, unspecified Status: Acute Assessment and Plan: Per primary service. Patient remains significant anemic, H&H stable however. Subjective Date/time seen: Date of service:12/06/20 17:04 Follow-up for high output cardiac failure, anemia patient feels much better. Edema improved, denies abdominal pain. Denies shortness of breath. No dizziness, chest pain. States he wants to go home. Still receiving IV Lasix 80 mg b.i.d.. Review of Systems Review of Systems: All systems reviewed & are unremarkable except as noted in HPI and below Constitutional: Constitutional: Reports as per HPI, Reports lethargy and Denies weakness Eyes: Eyes: Reports as per HPI and Reports no additional eye complaints ENT: Reports system reviewed and no additional complaints, except as documented and Reports as per HPI Cardiovascular: Cardiovascular: Reports as per HPI, Denies chest pain, Reports pedal edema, Reports leg edema and Denies palpitations Respiratory: Respiratory: Reports as per HPI, Denies dyspnea and Reports dyspnea on exertion Gastrointestinal: Gastrointestinal: Reports as per HPI, Reports no additional gastrointestinal complaints, Denies abdominal pain, Denies melena, Reports bloating and Denies hematochezia Genitourinary: Genitourinary: Reports as per HPI Musculoskeletal: Musculoskeletal: Reports no additional musculoskeletal complaints and Reports as per HPI Integumentary/Breasts: Skin/Breast: Reports as per HPI Neurologic: Reports as per HPI and Reports weakness Psychiatric: Psychiatric: Reports as per HPI Endocrine: Endocrine: Reports no additional endocrine complaints Hematologic/Lymphatic: Hematologic/Lymphatic: Reports as per HPI Allergic/Immunologic: Allergic/Immunologic: Reports as per HPI Exam Const: General: comfortable and no acute distress HENMT: Mouth: Yes moist mucous membranes Eyes: Sclera: sclerae normal Pupils: Equal, round and reactive pupils present Neck: Neck: supple Carotids: bruit Other: no carotid bruits very hard to assess JVD because of his obesity Resp: Effort & Inspection: normal respiratory effort Other: dull breath sounds at the bases bilaterally Cardio: Rate: regular rate Rhythm: regular rhythm Other: PMI cannot be palpated there is a very soft systolic murmur that does not radiate from the left sternal border GI: Inspection: distended and obesity GI Palp: No abdominal tenderness, Yes Soft to palpation, No Tenderness to palpation present (GI) and No Guarding due to palpation present (GI) Auscultation: normal bowel sounds
[2020-12-08 19:01] LABS: LDH Peritoneal Fluid 48 U/L (<63)
== END 2020-12-06 17:14 | disposition home or self-care (01) | DRG 432 ==
LOC: ANHED 13:06 → ANH3MEDSUR 16:07
PROVIDERS: Emergency Medicine; Radiology Diagnostic Radiology; Admitting Provider Internal Medicine Critical Care Medicine; Emergency Provider Emergency Medicine; PCP Internal Medicine; Visit Provider Student in an Organized Health Care Education/Training Program
PROC: 07DR3ZX Extraction of Iliac Bone Marrow, Percutaneous Approach, Diagnostic (ICD-10-PCS; principal; 2020-12-06 09:30)
DX: K70.30 Alcoholic cirrhosis of liver without ascites (principal); I50.33 Acute on chronic diastolic (congestive) heart failure; J44.1 Chronic obstructive pulmonary disease with (acute) exacerbation; J90 Pleural effusion, not elsewhere classified; J96.10 Chronic respiratory failure, unspecified whether with hypoxia or hypercapnia; I25.810 Atherosclerosis of coronary artery bypass graft(s) without angina pectoris; Z68.41 Body mass index [BMI] 40.0-44.9, adult; F10.10 Alcohol abuse, uncomplicated; D50.9 Iron deficiency anemia, unspecified; F43.10 Post-traumatic stress disorder, unspecified; E66.01 Morbid (severe) obesity due to excess calories; F17.210 Nicotine dependence, cigarettes, uncomplicated; Z95.1 Presence of aortocoronary bypass graft; Z91.19 Patient's noncompliance with other medical treatment and regimen
CPT/HCPCS: 36415; 38222; 49083; 51702; 71046; 80048; 80053; 83615; 83735; 83880; 84484; 85025; 85610; 85730; 87070; 87075; 87102; 87205; 87206; 88104; 88108; 88184; 88185; 88305; 88311; 88313; 88341; 88342; 88360; 88364; 88365; 93005; 93970; 94640; 96374; 99291; A9270; G0378; J1642; J1650; J1940; J2920; J3010

== ENCOUNTER 2020-12-23 10:34 | Outpatient (CLI) | payer BC, SELFPAY ==
--- NOTE | ~2020-12-23 | US_ITS ---
EXAMINATION: US paracentesis abd w/image DATE: 12/23/2020 15:03 INDICATION: Ascites. TECHNIQUE: The procedure and its risks and benefits were discussed with the patient. Potential risks discussed included bleeding and infection. The skin was prepped and draped in sterile fashion. 1% lid ocaine was used for local anesthesia. Under ultrasound guidance, a 5 Fr catheter with trochar was adv anced into the ascites in the right upper quadrant. Fluid was aspirated into vacuum bottles. The cath eter was removed, and a dressing was applied. There were no immediate complications. FINDINGS: Ultrasound images demonstrate ascites and the catheter within the fluid. IMPRESSION: 1. Successful ultrasound-guided paracentesis yielding 2550 mL of yellow fluid. Reviewed, dictated and finalized at location A.
== END 2020-12-23 10:35 | disposition home or self-care (01) ==
LOC: ANHIMG 10:41
PROVIDERS: PCP Internal Medicine; Visit Provider Internal Medicine
DX: R18.8 Other ascites (principal)
CPT/HCPCS: 49083

== ENCOUNTER 2020-12-30 10:30 | Outpatient (RCR) | payer BC, SELFPAY ==
[2020-12-28 11:59] VITALS: BP 112/50; PULSE 78; RESP 22; TEMP 36.3; O2SAT 100
--- NOTE | 2020-12-28 12:26 | PC.NURSE ---
Patient being taken over to the hospital for intravenous insertion per Yoanna Counts.
[2020-12-28] MEDS: diphenhydrAMINE HCl INJ 50 MG/ML VIAL 25 MG IV PUSH (13:10)
[2020-12-28] MEDS: ACETAMINOPHEN 325 MG TABLET 650 MG PO (13:10)
[2020-12-28] MEDS: IRON SUCROSE COMPLEX 300 MG in SODIUM CHLORIDE 0.9% IV 250 ML 176.667 MG IVPB (13:25)
--- NOTE | 2020-12-28 15:15 | PC.NURSE ---
Iv remains in place for infusion tomorrow 12/29
[2020-12-28 15:51] VITALS: BP 106/46
[2020-12-29 11:58] VITALS: BP 111/54; PULSE 82; RESP 18; TEMP 35.8; O2SAT 97
[2020-12-29] MEDS: ACETAMINOPHEN 325 MG TABLET 650 MG PO (12:12)
[2020-12-29] MEDS: diphenhydrAMINE HCl INJ 50 MG/ML VIAL 25 MG IV PUSH (12:13)
[2020-12-29] MEDS: IRON SUCROSE COMPLEX 300 MG in SODIUM CHLORIDE 0.9% IV 250 ML 176.667 MG IVPB (12:20)
[2020-12-29 14:17] VITALS: BP 102/50
--- NOTE | 2020-12-29 14:46 | PC.NURSE ---
Iv remains in place for infusion tomorrow 12/30
[2020-12-30 11:15] VITALS: BP 120/46; PULSE 79; RESP 20; TEMP 35.8; O2SAT 98
[2020-12-30] MEDS: diphenhydrAMINE HCl INJ 50 MG/ML VIAL 25 MG IV PUSH (11:28)
[2020-12-30] MEDS: ACETAMINOPHEN 325 MG TABLET 650 MG PO (11:28)
[2020-12-30] MEDS: IRON SUCROSE COMPLEX 300 MG in SODIUM CHLORIDE 0.9% IV 250 ML 176.667 MG IVPB (11:56)
[2020-12-30 14:02] VITALS: BP 100/51
== END 2021-01-03 08:19 ==
LOC: AMCINF 10:30
PROVIDERS: PCP Internal Medicine; Visit Provider Internal Medicine Hematology & Oncology
DX: D50.9 Iron deficiency anemia, unspecified (principal); I27.20 Pulmonary hypertension, unspecified; I25.810 Atherosclerosis of coronary artery bypass graft(s) without angina pectoris; I50.33 Acute on chronic diastolic (congestive) heart failure; J96.10 Chronic respiratory failure, unspecified whether with hypoxia or hypercapnia; J44.9 Chronic obstructive pulmonary disease, unspecified; E87.6 Hypokalemia; F12.90 Cannabis use, unspecified, uncomplicated; F17.210 Nicotine dependence, cigarettes, uncomplicated
CPT/HCPCS: 96365; 96366; 96375; A9270; J1200; J1756; J7050